=== PATIENT | male | born 1945 | race Caucasian/White ===

== ENCOUNTER 2016-05-18 13:28 | Emergency (ER) | payer MEDICARE, OTHER ==
[~2016-05-18 13:28] MED LIST: CITA40TA12 PO; CLON2TAB PO; ONDA4TAB10 PO; PRED50TA PO; TAMS0.4C97 PO
[2016-05-18] MEDS ORDERED: ALBUTEROL SULFATE 2.5 MG/3 ML NEBU. NEB ONE (14:30)
[2016-05-18] MEDS ORDERED: PREDNISONE 20 MG TABLET PO ONE (14:30)
[2016-05-18] MEDS ORDERED: IPRATRPIUM/ALBUTEROL 0.5/2.5MG 3 ML NEBU. NEB ONE (14:30)
[2016-05-18] MEDS ORDERED: PRED50TA PO (15:15)
[2016-05-18 15:25] VITALS: BP 115/83
--- NOTE | 2016-05-18 15:33 | RAD ---
Chest, 2 views, 05/18/2016: History: Productive cough, COPD Comparison is made to a study from 11/05/2014. The heart size and pulmonary vascularity are normal. No pulmonary infiltrates are seen. There is no evidence of pleural fluid. IMPRESSION: No acute cardiopulmonary abnormality is detected.
--- NOTE | 2016-05-18 15:36 | ED.ADGEN ---
Past History Past Medical History: Anxiety, Other Past Surgical History: Appendectomy Alcohol Use: Sober Drug Use: None Adult General HPI HPI Patient is a 70-year-old male presents emergency department complaining of increasing dyspnea. He was treated one week ago for a presumed pneumonia with azithromycin and albuterol. Patient states that he is finishes azithromycin but his breathing continues to be labored. He denies any fever or chills. He does have a history of COPD. Review of Systems Review of Systems Constitutional: Denies fever or chills [] Eyes: Denies change in visual acuity, redness, or eye pain [] HENT: Denies nasal congestion or sore throat [] Respiratory: Denies cough or shortness of breath [] Cardiovascular: No additional information not addressed in HPI [] GI: Denies abdominal pain, nausea, vomiting, bloody stools or diarrhea [] : Denies dysuria or hematuria [] Musculoskeletal: Denies back pain or joint pain [] Integument: Denies rash or skin lesions [] Neurologic: Denies headache, focal weakness or sensory changes [] Endocrine: Denies polyuria or polydipsia [] Current Medications Current Medications Current Medications Medications (Trade) Dose Ordered Sig/Linden Start Time Stop Time Status Last Admin Dose Admin Albuterol Sulfate (Ventolin) 2.5 mg 1X ONCE 05/18/16 14:30 05/18/16 14:31 DC 05/18/16 14:03 2.5 MG Albuterol/ Ipratropium (Duoneb) 3 ml 1X ONCE 05/18/16 14:30 05/18/16 14:31 DC 05/18/16 14:10 3 ML Prednisone (Prednisone) 60 mg 1X ONCE 05/18/16 14:30 05/18/16 14:31 DC 05/18/16 14:40 60 MG Allergies Allergies Allergies Coded Allergies Type Severity Reaction Last Updated Verified No Known Drug Allergies 03/12/15 No Physical Exam Physical Exam Constitutional: Well developed, well nourished, no acute distress, non-toxic appearance. [] HENT: Normocephalic, atraumatic, bilateral external ears normal, oropharynx moist, no oral exudates, nose normal. [] Eyes: PERRLA, EOMI, conjunctiva normal, no discharge. [] Neck: Normal range of motion, no tenderness, supple, no stridor. [] Cardiovascular:Heart rate regular rhythm, no murmur [] Lungs & Thorax: Wheezing bilaterally Abdomen: Bowel sounds normal, soft, no tenderness, no masses, no pulsatile masses. [] Skin: Warm, dry, no erythema, no rash. [] Extremities: No tenderness, no cyanosis, no clubbing, ROM intact, no edema. [] Neurologic: Alert and oriented X 3, normal motor function, normal sensory function, no focal deficits noted. [] Psychologic: Affect normal, judgement normal, mood normal. [] Current Patient Data Vital Signs Vital Signs Date Time Temp Pulse Resp B/P Pulse Ox O2 Delivery O2 Flow Rate FiO2 05/18/16 14:06 93 Room Air EKG EKG [] Radiology/Procedures Radiology/Procedures Chest, 2 views, 05/18/2016: History: Productive cough, COPD Comparison is made to a study from 11/05/2014. The heart size and pulmonary vascularity are normal. No pulmonary infiltrates are seen. There is no evidence of pleural fluid. IMPRESSION: No acute cardiopulmonary abnormality is detected. DICTATED AND SIGNED BY: KRISTIE RHODES MD DATE: 05/18/16 1529 CC: SHAUNA KING MD; CLIFF BATEMAN MD ~[] Course & Med Decision Making Course & Med Decision Making Pertinent Labs and Imaging studies reviewed. (See chart for details) After couple of breathing treatments and a dose of prednisone the patient reports she has had significant improvement. I will send him home on a prednisone burst. Patient will follow with his doctor as needed and will continue to use his albuterol. He will return emergency Department sooner if he develops any new or worsening symptoms. [] Final Impression Final Impression COPD exacerbation [] Problems: Dragon Disclaimer Dragon Disclaimer This electronic medical record was generated, in whole or in part, using a voice recognition dictation system. SHAUNA KING MD May 18, 2016 15:36
== END 2016-05-18 15:25 | disposition home or self-care (01) ==
LOC: ER 13:28
DX: J44.1 Chronic obstructive pulmonary disease with (acute) exacerbation (principal)
CPT/HCPCS: 71020; 94640; 99284; J7512; J7613; J7620; 31500; 43760

== ENCOUNTER 2018-05-21 18:10 | Emergency (ER) | payer MEDICARE, OTHER ==
[~2018-05-21] VITALS: Ht 180.3 cm; Wt 88.5 kg
--- NOTE | 2018-05-21 18:20 | ED.ADGEN ---
Past History Past Medical History: Arthritis, COPD, Other Past Medical History Severe Rheumatoid, Lt. leg clonus Past Surgical History: Appendectomy Alcohol Use: Sober Drug Use: Other Adult General Chief Complaint Chief Complaint .. " I tripped and fell on some boxes.. it was last night.. but it still hurts to breath.. and move... here on this Rt. side... and upper abdomen..." HPI HPI Patient is a 72 year old male who presents with above hx and complaints Rt. Flank pain after fall yesterday afternoon. Pt. hx given is that he tripped due to his unstable gait- which is a chronic condition. Pt. fell over some boxes and contused his Rt. flank. Pt. complaints of continue pain that is exacerbated by movement and deep breaths. Pt. noted on anterior to posterior and side to side compression of chest wall near T-10-12 level. Some tenderness on palpation of Rt upper abd. quadrant. No other injuries reported in fall. Pt. hs hx of severe rheumatoid arthritis and COPD. Pt. still smokes. Pt. follows with Dr. Donato Mensah. Review of Systems Review of Systems Constitutional: Denies fever or chills [] Eyes: Denies change in visual acuity, redness, or eye pain [] HENT: Denies nasal congestion or sore throat [] Respiratory:Complaints of Chest wall pain Rt. Cardiovascular: No additional information not addressed in HPI [] GI: Complaints of Rt. upperr quadrant abdominal pain,. Denies nausea, vomiting , bloody stools or diarrhea [] : Denies dysuria or hematuria [] Musculoskeletal: Generalized chronic joint pain from Rheumatoid Arthritis Integument: Denies rash or skin lesions [] Neurologic: Denies headache, focal weakness or sensory changes [] Endocrine: Denies polyuria or polydipsia [] All other systems were reviewed and found to be within normal limits, except as documented in this note. Family History Family History Noncontributory Current Medications Current Medications Current Medications Medications (Trade) Dose Ordered Sig/Linden Start Time Stop Time Status Last Admin Dose Admin Info (Do NOT chart on this entry -- for MONITORING) 1 each PRN DAILY PRN 05/21/18 20:00 05/23/18 19:59 Iohexol (Omnipaque 350 Mg/ml) 100 ml 1X ONCE 05/21/18 19:45 05/21/18 19:46 DC 05/21/18 20:03 100 ML Lactated Ringer's 1,000 ml @ 100 mls/hr Q10H 05/21/18 18:26 05/22/18 04:25 05/21/18 19:07 100 MLS/HR Morphine Sulfate (Morphine 4mg Syringe) 4 mg 1X ONCE 05/21/18 19:15 05/21/18 19:16 DC 05/21/18 19:39 4 MG Allergies Allergies Allergies Coded Allergies Type Severity Reaction Last Updated Verified No Known Drug Allergies 03/12/15 No Physical Exam Physical Exam Constitutional: Moderate acute distress, non-toxic appearance. [] HENT: Normocephalic, atraumatic, bilateral external ears normal, oropharynx moist, no oral exudates, nose normal. [] Eyes: PERRLA, EOMI, conjunctiva normal, no discharge. [] Neck: Normal range of motion, no tenderness, supple, no stridor. [] Cardiovascular:Heart rate regular rhythm, no murmur [] Lungs & Thorax: Bilateral breath sounds equal apexes with few wheezes on auscultation [] Chest wall tenderness as per HPI Abdomen: Bowel sounds normal, soft, Rt. upper quadrant and flank tenderness as per HPI, no masses, no pulsatile masses. [] Old surgery scar. Skin: Warm, dry, no erythema, no rash. Poor turgor. [] Back: No tenderness, no CVA tenderness. [] Extremities: Joint tenderness, no cyanosis, no clubbing, ROM intact, no edema. [ ] Paramjit rheumatoid changes hands and feet. Neurologic: Alert and oriented X 3, is reported at his base line for motor and sensory function, no focal deficits noted. []Clonus Lt. foot Psychologic: Affect anxious, judgement normal, mood normal. [] Current Patient Data Vital Signs Vital Signs Date Time Temp Pulse Resp B/P (MAP) Pulse Ox O2 Delivery O2 Flow Rate FiO2 05/21/18 21:03 48 16 120/68 (85) 98 Room Air 05/21/18 18:20 97.4 Lab Results Laboratory Tests Test 05/21/18 18:35 White Blood Count 8.8 x10^3/uL (4.0-11.0) Red Blood Count 4.90 x10^6/uL (4.30-5.70) Hemoglobin 16.1 g/dL (13.0-17.5) Hematocrit 47.7 % (39.0-53.0) Mean Corpuscular Volume 97 fL (79-100) Mean Corpuscular Hemoglobin 33 pg (25-35) Mean Corpuscular Hemoglobin Concent 34 g/dL (31-37) Red Cell Distribution Width 14.3 % (11.5-14.5) Platelet Count 340 x10^3/uL (140-400) Neutrophils (%) (Auto) 72 % (31-73) Lymphocytes (%) (Auto) 20 % (24-48) L Monocytes (%) (Auto) 6 % (0-9) Eosinophils (%) (Auto) 1 % (0-3) Basophils (%) (Auto) 1 % (0-3) Neutrophils # (Auto) 6.3 x10^3uL (1.8-7.7) Lymphocytes # (Auto) 1.8 x10^3/uL (1.0-4.8) Monocytes # (Auto) 0.5 x10^3/uL (0.0-1.1) Eosinophils # (Auto) 0.1 x10^3/uL (0.0-0.7) Basophils # (Auto) 0.1 x10^3/uL (0.0-0.2) Prothrombin Time 11.5 SEC (9.4-11.4) H Prothrombin Time INR 1.2 (0.9-1.1) H PTT 25 SEC (23-33) Sodium Level 141 mmol/L (136-145) Potassium Level 3.8 mmol/L (3.5-5.1) Chloride Level 104 mmol/L (98-107) Carbon Dioxide Level 30 mmol/L (21-32) Anion Gap 7 (6-14) Blood Urea Nitrogen 19 mg/dL (8-26) Creatinine 1.1 mg/dL (0.7-1.3) Estimated GFR (Cockcroft-Gault) 65.8 Glucose Level 135 mg/dL (70-99) H Calcium Level 9.0 mg/dL (8.5-10.1) Magnesium Level 2.0 mg/dL (1.8-2.4) Total Bilirubin 0.6 mg/dL (0.2-1.0) Direct Bilirubin 0.2 mg/dL (0.0-0.2) Aspartate Amino Transferase (AST) 23 U/L (15-37) Alanine Aminotransferase (ALT) 35 U/L (16-63) Alkaline Phosphatase 103 U/L (46-116) Troponin I Quantitative < 0.017 ng/mL (0-0.055) Total Protein 7.1 g/dL (6.4-8.2) Albumin 3.2 g/dL (3.4-5.0) L EKG EKG Interpretation EKG shows a sinus rhythm at 63 bpm. Does have some leftward axis. No findings acute STEMI of contralateral changes.[] Radiology/Procedures Radiology/Procedures My interpretation of chest x-ray PA and lateral shows chronic COPD changes. Flat in the diaphragm. Digital degenerative joint changes. No findings of large pneumothorax. Does have findings of a hiatal hernia.[] CT chest shows a nondisplaced fracture right fifth rib. Moderate central lobular emphysema,no findings of obvious hepatic injury. Course & Med Decision Making Course & Med Decision Making Pertinent Labs and Imaging studies reviewed. (See chart for details) Patient take Tylenol and ibuprofen for pain. For marked pain may take Vicoprofen up 4 times a day. Patient to not bind the ribs. Encourage to stop smoking. Follow up with primary. Return if any concerns. [] Final Impression Final Impression 1. Fall 2. Rt. Flank Contusion 3. Severe Rheumatoid arthritis[] 4. Rt. Nondisplaced lateral 5th rib 5. Constipation Dragon Disclaimer Dragon Disclaimer This electronic medical record was generated, in whole or in part, using a voice recognition dictation system. Discharge Summary Visit Information Final Diagnosis Problems Medical Problems: (1) Rib fracture Status: Acute Brief Hospital Course Allergies Allergies Coded Allergies Type Severity Reaction Last Updated Verified No Known Drug Allergies 03/12/15 No Vital Signs Vital Signs Date Time Temp Pulse Resp B/P (MAP) Pulse Ox O2 Delivery O2 Flow Rate FiO2 05/21/18 21:03 48 16 120/68 (85) 98 Room Air 05/21/18 18:20 97.4 Lab Results Laboratory Tests Test 05/21/18 18:35 White Blood Count 8.8 x10^3/uL (4.0-11.0) Red Blood Count 4.90 x10^6/uL (4.30-5.70) Hemoglobin 16.1 g/dL (13.0-17.5) Hematocrit 47.7 % (39.0-53.0) Mean Corpuscular Volume 97 fL (79-100) Mean Corpuscular Hemoglobin 33 pg (25-35) Mean Corpuscular Hemoglobin Concent 34 g/dL (31-37) Red Cell Distribution Width 14.3 % (11.5-14.5) Platelet Count 340 x10^3/uL (140-400) Neutrophils (%) (Auto) 72 % (31-73) Lymphocytes (%) (Auto) 20 % (24-48) Monocytes (%) (Auto) 6 % (0-9) Eosinophils (%) (Auto) 1 % (0-3) Basophils (%) (Auto) 1 % (0-3) Neutrophils # (Auto) 6.3 x10^3uL (1.8-7.7) Lymphocytes # (Auto) 1.8 x10^3/uL (1.0-4.8) Monocytes # (Auto) 0.5 x10^3/uL (0.0-1.1) Eosinophils # (Auto) 0.1 x10^3/uL (0.0-0.7) Basophils # (Auto) 0.1 x10^3/uL (0.0-0.2) Prothrombin Time 11.5 SEC (9.4-11.4) Prothromb Time International Ratio 1.2 (0.9-1.1) Activated Partial Thromboplast Time 25 SEC (23-33) Sodium Level 141 mmol/L (136-145) Potassium Level 3.8 mmol/L (3.5-5.1) Chloride Level 104 mmol/L (98-107) Carbon Dioxide Level 30 mmol/L (21-32) Anion Gap 7 (6-14) Blood Urea Nitrogen 19 mg/dL (8-26) Creatinine 1.1 mg/dL (0.7-1.3) Estimated GFR (Cockcroft-Gault) 65.8 Glucose Level 135 mg/dL (70-99) Calcium Level 9.0 mg/dL (8.5-10.1) Magnesium Level 2.0 mg/dL (1.8-2.4) Total Bilirubin 0.6 mg/dL (0.2-1.0) Direct Bilirubin 0.2 mg/dL (0.0-0.2) Aspartate Amino Transf (AST/SGOT) 23 U/L (15-37) Alanine Aminotransferase (ALT/SGPT) 35 U/L (16-63) Alkaline Phosphatase 103 U/L (46-116) Troponin I Quantitative < 0.017 ng/mL (0-0.055) Total Protein 7.1 g/dL (6.4-8.2) Albumin 3.2 g/dL (3.4-5.0) Brief Hospital Course Mr. Faria is a 72 old male who presented with Rt. 5th rib fx. Discharge Information Condition at Discharge: Improved, Stable Disposition/Orders: D/C to Home Dischare Medications Current Medications Lactated Ringer's 1,000 ml @ 100 mls/hr Q10H IV Last administered on at 19:07; Admin Dose 100 MLS/HR; Start 05/21/18 at 18:26; Stop 05/22/18 at 04: 25 Morphine Sulfate (Morphine 4mg Syringe) 4 mg 1X ONCE IV Last administered on at 19:39; Admin Dose 4 MG; Start 05/21/18 at 19:15; Stop 05/21/18 at 19:16 ; Status DC Iohexol (Omnipaque 350 Mg/ml) 100 ml 1X ONCE IV Last administered on at 20:03; Admin Dose 100 ML; Start 05/21/18 at 19:45; Stop 05/21/18 at 19:46; Status DC Info (Do NOT chart on this entry -- for MONITORING) 1 each PRN DAILY PRN MC SEE COMMENTS; Start 05/21/18 at 20:00; Stop 05/23/18 at 19:59 Active Scripts Active Hydrocodone-Ibuprofen 7.5-200 (Hydrocodone/Ibuprofen) 1 Each Tablet 1 Tab PO PRN Q6HRS PRN Prednisone 50 Mg Tablet 1 Tab PO DAILY Zofran Odt (Ondansetron) 4 Mg Tab.rapdis 4 Mg PO Q6HRS PRN Prednisone 50 Mg Tablet 1 Tab PO DAILY Reported Klonopin (Clonazepam) 2 Mg Tablet 1 Tab PO BID Celexa (Citalopram Hydrobromide) 40 Mg Tablet 40 Mg PO DAILY Flomax (Tamsulosin Hcl) 0.4 Mg Cap.er.24h 1 Cap PO DAILY Dragon Disclaimer This chart was dictated in whole or in part using Voice Recognition software in a busy, high-work load, and often noisy Emergency Department environment. It may contain unintended and wholly unrecognized errors or omissions. VAISHALI MAR MD May 21, 2018 18:20
[2018-05-21] MEDS ORDERED: IV RINGERS SOLUTION,LACTATED 1,000 ML IV SCH (18:26)
[2018-05-21 18:53] LABS: BASO # 0.1 x10^3/uL (0.0-0.2); BASO % 1 % (0-3); EOS # 0.1 x10^3/uL (0.0-0.7); EOS % 1 % (0-3); HEMATOCRIT 47.7 % (39.0-53.0); HEMOGLOBIN 16.1 g/dL (13.0-17.5); LYMPH # 1.8 x10^3/uL (1.0-4.8); LYMPH % 20 % (24-48); MEAN CORPUSCULAR HEMOGLOBIN 33 pg (25-35); MEAN CORPUSCULAR HGB CONC 34 g/dL (31-37); MEAN CORPUSCULAR VOLUME 97 fL (79-100); MONO # 0.5 x10^3/uL (0.0-1.1); MONO % 6 % (0-9); NEUT # 6.3 x10^3uL (1.8-7.7); NEUT % 72 % (31-73); PLATELET COUNT 340 x10^3/uL (140-400); RED CELL DISTRIBUTION WIDTH 14.3 % (11.5-14.5); WHITE BLOOD COUNT 8.8 x10^3/uL (4.0-11.0)
[2018-05-21 19:13] LABS: ALBUMIN 3.2 g/dL (3.4-5.0); CREATININE 1.1 mg/dL (0.7-1.3); DIRECT BILIRUBIN 0.2 mg/dL (0.0-0.2); GFR 65.8; POTASSIUM 3.8 mmol/L (3.5-5.1); TOTAL BILIRUBIN 0.6 mg/dL (0.2-1.0); TOTAL PROTEIN 7.1 g/dL (6.4-8.2)
[2018-05-21] MEDS ORDERED: MORPHINE SULFATE 4 MG/ML DISP.SYRIN. IV ONE (19:15)
[2018-05-21] MEDS ORDERED: IOHEXOL 350 MG/ML 100 ML VIAL. IV ONE (19:45)
[2018-05-21] MEDS ORDERED: CONTRAST GIVEN MC PRN (20:00)
--- NOTE | 2018-05-21 21:34 | RAD ---
PA and lateral chest. HISTORY: Right-sided chest pain, right rib and flank pain, fall PA and lateral views were taken of the chest. There is no pneumothorax or pleural effusion. Lungs are clear. Heart is normal in size. A displaced right rib fracture is not identified. There is no thoracic compression fracture. IMPRESSION: 1. No acute chest disease. Electronically signed by: Fabián Ortiz MD (05/21/2018 9:31 PM) [id number]
--- NOTE | 2018-05-21 22:04 | RAD ---
EXAM: CT ANGIOGRAPHY OF THE CHEST AND ABDOMEN WITH AND WITHOUT INTRAVENOUS CONTRAST. HISTORY: Chest and flank pain. TECHNIQUE: Computed tomographic angiography of the chest was performed before and after the intravenous administration of 100 mL Omnipaque 350. 3-D maximum intensity projections were also performed. COMPARISON: None. FINDINGS: Bone windows reveal no suspicious lesions. No pulmonary emboli are identified. There is no aortic dissection or aneurysm. There is no arch vessel stenosis. There are no pathologically enlarged mediastinal or axillary lymph nodes. There is no pleural or pericardial effusion. The heart is not enlarged. Lung windows reveal moderate centrilobular emphysema. An uncalcified nodule in the right upper lobe on image 66 measures 5 mm. There is atelectasis or mild interstitial change in the costophrenic angles. There is mild bronchial wall thickening. The liver, gallbladder, pancreas, spleen and kidneys are unremarkable. A small nodule superiorly in the right adrenal gland measures 1.2 cm. It measures 13 Hounsfield units in attenuation and is likely a benign adenoma. There are no pathologically enlarged lymph nodes. The bladder is moderately to severely distended. Stool throughout the colon is consistent with constipation. There is no small bowel obstruction. There is no abdominal aortic aneurysm. The visualized iliac systems demonstrate mild atherosclerotic calcification without stenosis or aneurysm. There are atherosclerotic calcifications at the origins of the celiac axis and superior mesenteric artery without stenosis. The inferior mesenteric artery is patent. Both renal arteries are single and patent without stenosis. IMPRESSION: 1. No aortic dissection or aneurysm. 2. Nondisplaced fracture of the right lateral fifth rib. 3. Moderate centrilobular emphysema. Mild atelectasis versus interstitial lung disease in the costophrenic angles. 4. A 5 mm nodule in the right upper lobe is most likely benign at this small size. Follow-up could be considered in one year in a high risk patient if long-term stability is not already known. 5. A 1.2 cm right adrenal nodule is most likely a benign adenoma in the absence of known malignancy. 6. Correlate for constipation. *One or more of the following individualized dose reduction techniques were utilized for this examination: 1. Automated exposure control. 2. Adjustment of the mA and/or kV according to patient size. 3. Use of iterative reconstruction technique. Electronically signed by: Mari Feng MD (05/21/2018 10:01 PM) [id number]
[2018-05-21] MEDS ORDERED: HYDR-1179 PO (22:15)
[2018-05-21 22:30] VITALS: BP 124/78
--- NOTE | 2018-05-30 12:42 | EKG ---
[address] [address] Test Date: 2018-05-21 Test Time: 18:41:16 Pat Name: ROGELIO SQUIRES Department: Room: Gender: M Leadlighter: : 1945 Requested By: VAISHALI MAR Order Number: [id number] Reading MD: Prashanth Venegas Measurements Intervals [place] Rate: 63 P: 56 [place]: 150 QRS: -28 QRSD: 92 T: 28 QT: 414 QTc: 427 Interpretive Statements SINUS RHYTHM LEFTWARD AXIS Electronically Signed On 05-30-2018 12:41:59 CDT by Prashanth Venegas
== END 2018-05-21 22:30 | disposition home or self-care (01) ==
LOC: ER 18:10
DX: S22.31XA Fracture of one rib, right side, initial encounter for closed fracture (principal); S30.1XXA Contusion of abdominal wall, initial encounter; K59.00 Constipation, unspecified; M06.80 Other specified rheumatoid arthritis, unspecified site; F17.200 Nicotine dependence, unspecified, uncomplicated; Z90.89 Acquired absence of other organs; W01.0XXA Fall on same level from slipping, tripping and stumbling without subsequent striking against object, initial encounter; Y93.89 Activity, other specified; Y92.89 Other specified places as the place of occurrence of the external cause; Y99.8 Other external cause status
CPT/HCPCS: 36415; 71046; 71275; 74175; 80048; 80076; 83735; 84443; 84484; 85025; 85610; 85730; 93005; 96374; 99285; J2270; J7120; Q9967; 96361

== ENCOUNTER → 2018-12-30 | Outpatient (CLI) | payer MEDICARE, OTHER ==
[~2018-12-30] MED LIST changes: +HYDR-1179 PO
--- NOTE | 2018-12-30 10:49 | RAD ---
CT of the chest without contrast 12/30/2018 INDICATION: Follow-up pulmonary nodule COMPARISON STUDY: CT of the chest May 21, 2018 TECHNIQUE: Multidetector CT imaging of the chest performed without contrast FINDINGS: No pneumothorax, pleural effusion, or new focal infiltrate is seen. Stable 4 mm nodule, right upper lobe. Heart size is normal. Is identified. Coronary calcification again noted. Scattered small mediastinal lymph nodes are similar. Centrilobular emphysema is similar. Limited visualization of the upper abdomen is unremarkable. Interval development of the T4 compression fracture without bony retropulsion. Finding is indeterminate the morphology suggests subacute or chronic etiology. Impression: 1. Stable 4 mm lung nodule, right upper lobe. CT imaging to ensure 2 years of stability recommended 2. Centrilobular emphysema 3. Interval development of T4 compression fracture, likely subacute or chronic. Correlate with focal back pain consider MRI imaging as clinically indicated CT DOSING PQRS STATEMENT: One or more of the following individualized dose reduction techniques were utilized for this examination: 1. Automated exposure control 2. Adjustment of the mA and/or kV according to patient size 3. Use of iterative reconstruction technique Electronically signed by: Fabiano Pelaez MD (12/30/2018 10:46 AM) [id number]
== END | disposition home or self-care (01) ==
LOC: CT 09:15
PROVIDERS: ATTEND Family Medicine
DX: J43.2 Centrilobular emphysema (principal); R91.1 Solitary pulmonary nodule; I25.10 Atherosclerotic heart disease of native coronary artery without angina pectoris; M48.54XA Collapsed vertebra, not elsewhere classified, thoracic region, initial encounter for fracture; F17.200 Nicotine dependence, unspecified, uncomplicated
CPT/HCPCS: 71250

== ENCOUNTER → 2019-11-17 | Outpatient (CLI) | payer MEDICARE, OTHER ==
--- NOTE | 2019-11-17 13:09 | RAD ---
Examination: CT chest without contrast HISTORY: History of right upper lobe lung nodule. COMPARISON: 12/30/2018 TECHNIQUE: Axial CT images of chest were performed without contrast. Coronal and sagittal reformats are performed. Exposure: One or more of the following individualized dose reduction techniques were utilized for this examination: 1. Automated exposure control 2. Adjustment of the mA and/or kV according to patient size 3. Use of iterative reconstruction technique FINDINGS: The heart size grossly appears unremarkable. Coronary artery calcifications identified. The ascending aorta is 3.8 cm in transverse dimension. No evidence for significant mediastinal lymphadenopathy Moderate bilateral lung emphysematous changes. A 4 mm nodule identified in the right upper lobe of the lung. There is a 6 mm nodular density in the left lower lobe of the lung. Minimal right lung base airspace opacities likely atelectasis, unchanged. The visualized noncontrasted liver, spleen, adrenals grossly appears unremarkable. Mild degenerative changes thoracic spine. Mild compression change of T4 vertebral body unchanged. IMPRESSION: 1. 4 mm nodule identified in the right upper lobe of the lung and a 6 mm nodule identified left lower lobe of the lung, unchanged. Electronically signed by: Garth Angeles MD (11/17/2019 1:06 PM) [id number]
== END ==
LOC: CT 12:17
PROVIDERS: ATTEND Family Medicine
DX: R91.1 Solitary pulmonary nodule (principal); J43.9 Emphysema, unspecified; I25.10 Atherosclerotic heart disease of native coronary artery without angina pectoris
CPT/HCPCS: 71250

== ENCOUNTER → 2020-07-30 | Outpatient (CLI) | payer MEDICARE, OTHER ==
--- NOTE | 2020-07-31 12:50 | RAD ---
EXAM: CT OF THE CHEST WITHOUT CONTRAST. HISTORY: Pulmonary nodules. TECHNIQUE: Computed tomography of the chest was performed without intravenous contrast. One or more o f the following individualized dose reduction techniques were utilized for this examination: 1. Automated exposure control. 2. Adjustment of the mA and/or kV according to patient size. 3. Use of iterative reconstruction technique. COMPARISON: 11/17/2019, 05/21/2018. FINDINGS: Images of the upper abdomen reveal mild to moderate left hydronephrosis, incompletely asses sed. Bone windows reveal no suspicious lesions. A moderate superior endplate compression deformity at T4 is chronic. There are no pathologically enlarged mediastinal or axillary lymph nodes. There is no pleural or kalen cardial effusion. The heart is not enlarged. There are atherosclerotic calcifications of the coronary arteries. A 5 mm nodule in the left lower lobe on image 220 is stable. A 4 mm nodule in the right upper lobe on image 99 is also stable. A 4 mm nodule adjacent to the posterior pleura in the left lower lobe on im age 89 was not seen previously but is likely atelectasis. There are no suspicious nodules. There is mild to moderate centrilobular emphysema. Subpleural interstitial line thickening is most no table in the right base is consistent with interstitial lung disease. This has increased slightly sin ce 2019. IMPRESSION: 1. A 4 mm nodule in the left lower lobe was not seen previously but is likely atelectasis. Other nodu les are stable. Screening CT could be performed in one year if there is persistent concern. 2. Interstitial lung disease superimposed on mild to moderate centrilobular emphysema appears slightl y progressed since 2019. 3. Mild to moderate left hydronephrosis is incompletely assessed. Correlate with other data. CT of th e abdomen/pelvis could further evaluate if the diagnosis is not already known. Electronically signed by: Mari Feng MD (07/31/2020 12:48 PM) [id number]
== END ==
LOC: CT 14:10
PROVIDERS: ATTEND Family Medicine
DX: R91.8 Other nonspecific abnormal finding of lung field (principal); J43.2 Centrilobular emphysema; J98.4 Other disorders of lung; N13.30 Unspecified hydronephrosis
CPT/HCPCS: 71250

== ENCOUNTER 2020-08-26 23:18 | Emergency (ER) | payer MEDICARE, OTHER ==
[~2020-08-26] VITALS: Ht 180.3 cm; Wt 88.0 kg
[~2020-08-26 23:18] MED LIST changes: -CIPR500S2 PO
--- NOTE | 2020-08-27 00:01 | PHYS DOC ---
Past History Past Medical History: Arthritis, COPD, Prostatitis, Other Past Surgical History: Appendectomy Alcohol Use: Sober Drug Use: Benzodiazepine General Adult HPI: HPI: ".. I got bad abdomen pain.. .. for a couple days now.. it is worse now.. especially the last 4 hrs.. at lst I thought it was the beans and hot dogs I had two days ago .. I got MS, ... Rheumatoid arthritis... And enlarged prostate. I have been on prednisone recently for arthritis. I am no longer taking the methotrexate.... Patient is a 75 year old malee who presents with above hx and complaints of abdomen pain. Patient denies any severe ill contacts. No recent travel. No history of bad food intake, but does does state his symptoms seem to start after eating beans with wieners 2 days ago. Patient has past medical history of arthritis, COPD, leg: Clonus, advanced rheumatoid arthritis, MS - primary progressive, large prostate, urinary retention and enteritis.. Patient still smokes. Patient only follows with Dr. Bateman for care. No specific ill contacts. No recent travel. Has been compliant with meds. Patient has had previous abdomen surgeries of appendectomy. Review of Systems: Review of Systems: Constitutional: Denies fever or chills Eyes: Denies change in visual acuity HENT: Denies nasal congestion or sore throat Respiratory: Denies cough or shortness of breath Cardiovascular: Denies chest pain or edema GI: Complains of generalized abdominal pain, nausea,. Denies vomiting, bloody stools or diarrhea : Complains of dysuria Musculoskeletal: Denies back pain or joint pain Integument: Denies rash Neurologic: Denies headache, focal weakness or sensory changes Endocrine: Denies polyuria or polydipsia Lymphatic: Denies swollen glands Psychiatric: Denies depression or anxiety Family History: Family History: Noncontributory to presentation Current Medications: Current Meds: See nursing for home meds Allergies: Allergies: Allergies Coded Allergies Type Severity Reaction Last Updated Verified No Known Drug Allergies 03/12/15 No Physical Exam: PE: Constitutional: Moderate acute distress, non-toxic appearance. [] HENT: Normocephalic, atraumatic, bilateral external ears normal, oropharynx moist, no oral exudates, nose normal. [] Eyes: PERRLA, EOMI, conjunctiva normal, no discharge. [] Neck: Decreased range of motion, no tenderness, supple, no stridor. [] Cardiovascular:Heart rate regular rhythm, no murmur, PMI to left Lungs & Thorax: Bilateral breath sounds to apex with scattered wheezes on auscultation [] Abdomen: Bowel sounds decreased, soft, and generalized tenderness, appears to have a very enlarged bladder,, no pulsatile masses. [] Skin: Warm, dry, no erythema, no rash. Poor turgor Back: No tenderness, no CVA tenderness. [] Extremities: Generalized joint tenderness, no cyanosis, no clubbing, ROM decreased no edema. Marker rheumatoid arthritic changes such as hand ulnar deviation Neurologic: Alert and oriented X 3, moves all extremities on request, has distal sensory in hands,, no new focal deficits noted. [] DTRs +2 patella and brachial. Psychologic: Affect anxious, judgement normal, mood normal. [] EKG: EKG: My interpretation EKG shows a sinus rhythm at 80 bpm. There is left axis deviation. And a fascicular block. No findings of acute STEMI of contralateral changes. [] Radiology/Procedures: Radiology/Procedures: [[place] [address] IMAGING REPORT Signed PATIENT: ROGELIO SQUIRES ACCOUNT: [id number] : 1945 LOCATION: ER AGE: 75 SEX: M EXAM STATUS: REG ER ORD. PHYSICIAN: VAISHALI MAR MD REASON: pain, OMNI 300, 75ml & OMNI 240, 30ml PROCEDURE: CT ABD PELV W/ORAL&IV CONTRAST CT ABDOMEN+PELVIS W History: pain Comparison: 08/26/2020 Technique: After administration of intravenous contrast, helical CT of the abdomen and pelvis was performed from the lung bases through the ischial tuberosities. Coronal and sagittal reconstructions were obtained. 75 mL of Omnipaque 300 were used. One or more of the following dose reduction techniques were utilized: Automated exposure control (AEC), Adjustment of mA and/or kV according to patient size, Use of iterative reconstruction technique such as ASiR, CT scan done according to ALARA and image gently/image wisely Abdomen Findings: The visualized lung bases are clear. The liver, gallbladder, pancreas, spleen, and bilateral adrenal glands are normal. Symmetric renal enhancement. There is no focal renal mass. There is no hydronephrosis. Fluid and debris in the stomach. Conspicuous fluid-filled but nondilated loops of small bowel. Fluid in the colon. There is no evidence of bowel obstruction. Appendix is not seen. There is no mesenteric or retroperitoneal adenopathy. The abdominal aorta is normal in caliber. Pelvis Findings: Urinary bladder is decompressed by Puentes catheter. Mild pelvic free fluid. There is no pelvic or inguinal adenopathy. There is no acute bony abnormality. Degenerative changes of the spine. IMPRESSION: 1. Multiple conspicuous fluid-filled but nondilated loops of small bowel, nonspecific but can be seen with enteritis. 2. Fluid throughout the colon may represent diarrhea. 3. Mild pelvic free fluid. Electronically signed by: Darcy Pressley MD (08/27/2020 5:47 AM) [facility] DICTATED AND SIGNED BY: DARCY PRESSLEY MD DATE: 08/27/20532 CC: VAISHALI MAR MD; CLIFF BATEMAN MD ~[facility] [address] [place] [address] IMAGING REPORT Signed PATIENT: ROGELIO SQUIRES ACCOUNT: [id number] : 1945 LOCATION: ER AGE: 75 SEX: M EXAM STATUS: REG ER ORD. PHYSICIAN: VAISHALI MAR MD REASON: pain PROCEDURE: ACUTE ABDOMEN SERIES XR ABDOMEN COMP ACUTE INDICATION: Abdominal pain. COMPARISON STUDY: CT abdomen PEL 08/26/2020. FINDINGS: Lungs: Normal lung volume. No pulmonary mass or consolidation. The tracheobronchial tree and hilar structures are normal. Pleura: No pleural effusion or pneumothorax. Heart and Mediastinum: The cardiomediastinal silhouette is normal. The great vessels of the thorax are normal. Abdomen: Nonobstructive bowel gas pattern. No free air. IMPRESSION: 1. Nonobstructive bowel gas pattern. No free air. 2. No focal airspace disease. Electronically signed by: Darcy Pressley MD (08/27/2020 12:56 AM) [facility] DICTATED AND SIGNED BY: DARCY PRESSLEY MD DATE: 08/27/20 0055 CC: VAISHALI MAR MD; CLIFF BATEMAN MD ~[facility]0 0 Heart Score: C/O Chest Pain: N/A HEART Score for Chest Pain: HEART Score for Chest Pain Response (Comments) Value History Slighlty/Non-Suspicious 0 ECG Nonspecific Repolarizatio 1 Age > 65 2 Risk Factors 1 or 2 Risk Factors 1 Troponin < Normal Limit 0 Total 4 Risk Factors: Risk Factors: DM, Current or recent (<one month) smoker, HTN, HLP, family history of CAD, obesity. Risk Scores: Score 0 - 3: 2.5% MACE over next 6 weeks - Discharge Home Score 4 - 6: 20.3% MACE over next 6 weeks - Admit for Clinical Observation Score 7 - 10: 72.7% MACE over next 6 weeks - Early Invasive Strategies Course & Med Decision Making: Course & Med Decision Making Pertinent Labs and Imaging studies reviewed. (See chart for details) Puentes cath placed with return of more than 2000 cc of urine-after this procedure patient reported marked relief of abdomen pain. Patient take Cipro 500 mg twice a day. Tylenol and ibuprofen as needed for pain. Push fluids. Follow-up with urology. Return if any concerns. \\ Impression: 1. Abdomen Pain 2. Urinary Retention 3. MS 4. Rheumatoid arthritis 5. Enlarged prostate 6. Leukocytosis 15.7 with 71 segs 7. Gastroenteritis [] Dragon Disclaimer: Dragon Disclaimer: This electronic medical record was generated, in whole or in part, using a voice recognition dictation system. Departure Departure: Referrals: CLIFF BATEMAN MD (PCP) Scripts Tamsulosin Hcl (FLOMAX) 0.4 Mg Cap.er.24h 0.4 MG PO DAILY for enlarge prostate for 30 Days, #30 CAP.SR Prov: VAISHALI MAR MD 08/27/20 Ciprofloxacin (CIPRO) 500 Mg/5 Ml Dinora.mc.rec 500 MG PO BID for uti for 7 Days, MISC Prov: VAISHALI MAR MD 08/27/20 Dragon Disclaimer This chart was dictated in whole or in part using Voice Recognition software in a busy, high-work load, and often noisy Emergency Department environment. It may contain unintended and wholly unrecognized errors or omissions. VAISHALI MAR MD Aug 27, 2020 00:01
[2020-08-27] MEDS ORDERED: IV RINGERS SOLUTION,LACTATED 1,000 ML IV SCH (00:30)
[2020-08-27] MEDS ORDERED: FAMOTIDINE 20 MG/2 ML VIAL IVP ONE (00:30)
[2020-08-27] MEDS ORDERED: KETOROLAC 30 MG/ML VIAL. IVP ONE (00:30)
[2020-08-27] MEDS ORDERED: ONDANSETRON PF 4 MG/2 ML VIAL. IVP ONE (00:30)
--- NOTE | 2020-08-27 00:59 | RAD ---
XR ABDOMEN COMP ACUTE INDICATION: Abdominal pain. COMPARISON STUDY: CT abdomen PEL 08/26/2020. FINDINGS: Lungs: Normal lung volume. No pulmonary mass or consolidation. The tracheobronchial tree and hilar st ructures are normal. Pleura: No pleural effusion or pneumothorax. Heart and Mediastinum: The cardiomediastinal silhouette is normal. The great vessels of the thorax ar e normal. Abdomen: Nonobstructive bowel gas pattern. No free air. IMPRESSION: 1. Nonobstructive bowel gas pattern. No free air. 2. No focal airspace disease. Electronically signed by: Sourav Pressley MD (08/27/2020 12:56 AM) [facility]
[2020-08-27 01:11] LABS: BASO # 0.1 x10^3/uL (0.0-0.2); BASO % 0 % (0-3); EOS # 0.1 x10^3/uL (0.0-0.7); EOS % 1 % (0-3); HEMATOCRIT 44.6 % (39.0-53.0); HEMOGLOBIN 14.9 g/dL (13.0-17.5); LYMPH # 1.9 x10^3/uL (1.0-4.8); LYMPH % 12 % (24-48); MEAN CORPUSCULAR HEMOGLOBIN 32 pg (25-35); MEAN CORPUSCULAR HGB CONC 34 g/dL (31-37); MEAN CORPUSCULAR VOLUME 96 fL (79-100); MONO # 1.2 x10^3/uL (0.0-1.1); MONO % 8 % (0-9); NEUT # 12.4 x10^3uL (1.8-7.7); NEUT % 79 % (31-73); PLATELET COUNT 275 x10^3/uL (140-400); RED BLOOD COUNT 4.63 x10^6/uL (4.30-5.70); RED CELL DISTRIBUTION WIDTH 15.4 % (11.5-14.5); WHITE BLOOD COUNT 15.7 x10^3/uL (4.0-11.0)
[2020-08-27 01:21] LABS: CALCIUM 8.9 mg/dL (8.5-10.1); CREATININE 0.9 mg/dL (0.7-1.3); GFR 82.3; POTASSIUM 3.6 mmol/L (3.5-5.1)
[2020-08-27 01:28] LABS: ALBUMIN 3.6 g/dL (3.4-5.0); DIRECT BILIRUBIN 0.2 mg/dL (0.0-0.2); TOTAL BILIRUBIN 0.7 mg/dL (0.2-1.0); TOTAL PROTEIN 6.5 g/dL (6.4-8.2)
[2020-08-27 01:36] LABS: % BANDS 4 % (0-9); % BASOS 1 % (0-3); % EOS 1 % (0-5); % LYMPHS 16 % (24-48); % MONOS 7 % (0-10); % SEGS 71 % (35-66); PLT ESTIMATE ADEQUATE (ADEQUATE)
[2020-08-27] MEDS ORDERED: MORPHINE SULFATE 10 MG/ML SYRINGE. SQ ONE (03:00)
[2020-08-27] MEDS ORDERED: cefTRIAXone SODIUM 1 GM VIAL ONE (03:20)
[2020-08-27] MEDS ORDERED: IV NORMAL SALINE 50ML 50 ML ONE (03:20)
[2020-08-27] MEDS ORDERED: CONTRAST GIVEN. MC PRN (04:15)
[2020-08-27] MEDS ORDERED: IOHEXOL 300 MG/ML 75 ML VIAL. IV ONE (04:30)
[2020-08-27] MEDS ORDERED: IOHEXOL 240 MG/ML 50ML VIAL. PO ONE (04:30)
[2020-08-27 04:52] LABS: BACTERIA,URINE 0 /HPF (0-FEW); BILIRUBIN,URINE NEG (NEG); CLARITY,URINE CLEAR; COLOR,URINE YELLOW; GLUCOSE,URINE NEG (NEG); NITRITE,URINE NEG (NEG); RBC,URINE OCC /HPF (0-2); UROBILINOGEN,URINE 0.2 mg/dL (0.2 mg/dL); WBC,URINE OCC /HPF (0-4)
--- NOTE | 2020-08-27 05:50 | RAD ---
CT ABDOMEN+PELVIS W History: pain Comparison: 08/26/2020 Technique: After administration of intravenous contrast, helical CT of the abdomen and pelvis was per formed from the lung bases through the ischial tuberosities. Coronal and sagittal reconstructions wer e obtained. 75 mL of Omnipaque 300 were used. One or more of the following dose reduction techniques were utilized: Automated exposure control (AEC), Adjustment of mA and/or kV according to patient size , Use of iterative reconstruction technique such as ASiR, CT scan done according to ALARA and image g ently/image wisely Abdomen Findings: The visualized lung bases are clear. The liver, gallbladder, pancreas, spleen, and bilateral adrenal glands are normal. Symmetric renal enhancement. There is no focal renal mass. There is no hydronephrosis. Fluid and debris in the stomach. Conspicuous fluid-filled but nondilated loops of small bowel. Fluid in the colon. There is no evidence of bowel obstruction. Appendix is not seen. There is no mesenteric or retroperitoneal adenopathy. The abdominal aorta is normal in caliber. Pelvis Findings: Urinary bladder is decompressed by Puentes catheter. Mild pelvic free fluid. There is no pelvic or ingu inal adenopathy. There is no acute bony abnormality. Degenerative changes of the spine. IMPRESSION: 1. Multiple conspicuous fluid-filled but nondilated loops of small bowel, nonspecific but can be seen with enteritis. 2. Fluid throughout the colon may represent diarrhea. 3. Mild pelvic free fluid. Electronically signed by: Sourav Pressley MD (08/27/2020 5:47 AM) [facility]
[2020-08-27] MEDS ORDERED: CIPR500S2 PO (06:21)
[2020-08-27] MEDS ORDERED: TAMS0.4C97 PO (06:21)
[2020-08-27 07:00] VITALS: BP 122/68
--- NOTE | 2020-08-27 19:23 | EKG ---
[address] [address] Test Date: 2020-08-27 Test Time: 00:18:42 Pat Name: ROGELIO SQUIRES Department: Room: Gender: M [employer] Machine Operator: YIMI : 1945 Requested By: VAISHALI MAR Order Number: [id number] Reading MD: Measurements Intervals [place] Rate: 80 P: 86 ID: [id number] QRS: -51 QRSD: 88 T: 52 QT: 368 QTc: 428 Interpretive Statements SINUS RHYTHM ABNORMAL LEFT AXIS DEVIATION LEFT ANTERIOR FASCICULAR BLOCK ABNORMAL ECG RI6.02 No previous ECG available for comparison
== END 2020-08-27 07:00 | disposition home or self-care (01) ==
LOC: ER 23:18
DX: K52.9 Noninfective gastroenteritis and colitis, unspecified (principal); D72.829 Elevated white blood cell count, unspecified; N40.0 Benign prostatic hyperplasia without lower urinary tract symptoms; M06.9 Rheumatoid arthritis, unspecified; G35 Multiple sclerosis; R33.9 Retention of urine, unspecified; J44.9 Chronic obstructive pulmonary disease, unspecified; Z90.89 Acquired absence of other organs
CPT/HCPCS: 36415; 51702; 74022; 74177; 80048; 80076; 81001; 82150; 82550; 83690; 84484; 85007; 85025; 93005; 96361; 96365; 96366; 96372; 96375; 99285; J0696; J1885; J2270; J2405; J3490; J7120; Q9966; Q9967

== ENCOUNTER → 2020-08-26 | Outpatient (CLI) | payer MEDICARE, OTHER ==
[~2020-08-26] MED LIST changes: +CIPR500S2 PO
--- NOTE | 2020-08-26 08:49 | RAD ---
EXAMINATION: CT abdomen and pelvis with IV contrast. INDICATION:75 years, Male, evaluate for kidney stone. TECHNIQUE: Axial CT images of the abdomen and pelvis were obtained. Coronal and sagittal reformatted performed. COMPARISON: CT chest dated 05/21/2018 Exposure: One or more of the following individualized dose reduction techniques were utilized for thi s examination: 1. Automated exposure control 2. Adjustment of the mA and/or kV according to patient size 3. Use of iterative reconstruction technique. FINDINGS: LOWER CHEST: Right basilar subsegmental atelectasis. There is a 5 mm pulmonary nodule in the left lung base, uncha nged since May 2018. ABDOMEN/PELVIS: Within the limitation of noncontrast exam, Liver, gallbladder, biliary ducts, spleen and pancreas are unremarkable. No adrenal nodule. No hydronephrosis or nephrolithiasis in either kidney. No bowel obstruction or wall thickening. Appen michel is not seen with certainty. Mild aortoiliac atherosclerotic calcifications without dilatation. No pneumoperitoneum or ascites. No lymphadenopathy in the abdomen or pelvis by size criteria. Overdistended urinary bladder with irregular morphology and mild wall thickening, essentially similar to prior exam. Coarse calcifications in the prostate. MUSCULOSKELETAL: No acute osseous process or suspicious lesion. Small fat-containing bilateral inguinal hernia. IMPRESSION: 1. No obstructive uropathy or urolithiasis. 2. Overdistended urinary bladder with irregular morphology, findings can be seen in neurogenic bladde r or chronic bladder outlet obstruction. Clinical correlation is advised. Electronically signed by: Clau Lockhart MD (08/26/2020 8:47 AM) [id number]
== END ==
LOC: CT 08:02
PROVIDERS: ATTEND Family Medicine
DX: N13.30 Unspecified hydronephrosis (principal); K40.20 Bilateral inguinal hernia, without obstruction or gangrene, not specified as recurrent; I70.8 Atherosclerosis of other arteries; J98.11 Atelectasis; R91.1 Solitary pulmonary nodule; I70.0 Atherosclerosis of aorta
CPT/HCPCS: 74176

== ENCOUNTER 2020-09-19 17:00 | Emergency (ER) | payer MEDICARE, OTHER ==
[~2020-09-19] VITALS: Ht 180.3 cm; Wt 88.0 kg
[~2020-09-19 17:00] MED LIST changes: +CIPR500S2 PO
[2020-09-19 18:28] VITALS: BP 115/76
[2020-09-19 18:41] LABS: CLARITY,URINE CLOUDY; COLOR,URINE AMBER
[2020-09-19 18:42] LABS: BACTERIA,URINE FEW /HPF (0-FEW); BILIRUBIN,URINE NEG (NEG); GLUCOSE,URINE NEG (NEG); NITRITE,URINE NEG (NEG); RBC,URINE 20-40 /HPF (0-2); SQUAMOUS EPITHELIAL CELL,UR OCC /LPF; UROBILINOGEN,URINE 0.2 mg/dL (0.2 mg/dL)
[2020-09-19 18:43] LABS: AMORPHOUS SEDIMENT,UR PRESENT /HPF; SPERM,URINE PRESENT /HPF; YEAST,URINE PRESENT /HPF
--- NOTE | 2020-09-19 19:20 | PHYS DOC ---
Past History Past Medical History: Arthritis, COPD, Prostatitis, Other Additional Past Medical Histor: MS (DONTE RODRIGUEZ APRN) Past Surgical History: Appendectomy (DONTE RODRIGUEZ APRN) Alcohol Use: None Drug Use: Benzodiazepine (DONTE RODRIGUEZ APRN) General Adult EDM: Chief Complaint: URINARY RETENTION HPI: HPI: Patient is a [75-year-old male who presents with urinary retention. Patient had his catheter removed at the urologist office yesterday. Patient was unable to pee and contacted urology. Urologist told him if he did not end up pain by the end of today that he needed to come to the ER and have another catheter placed. (DONTE RODRIGUEZ APRN) Review of Systems: Review of Systems: Constitutional: Denies fever or chills Eyes: Denies change in visual acuity HENT: Denies nasal congestion or sore throat Respiratory: Denies cough or shortness of breath Cardiovascular: Denies chest pain or edema GI: Denies abdominal pain, nausea, vomiting, bloody stools or diarrhea : Reports unable to urinate Musculoskeletal: Denies back pain or joint pain Integument: Denies rash Neurologic: Denies headache, focal weakness or sensory changes Endocrine: Denies polyuria or polydipsia Lymphatic: Denies swollen glands Psychiatric: Denies depression or anxiety (DONTE RODRIGUEZ APRN) Allergies: Allergies: Allergies Coded Allergies Type Severity Reaction Last Updated Verified No Known Drug Allergies 03/12/15 No (DONTE RODRIGUEZ APRN) Physical Exam: PE: Constitutional: Well developed, well nourished, no acute distress, non-toxic appearance. [] HENT: Normocephalic, atraumatic, bilateral external ears normal, oropharynx moist, no oral exudates, nose normal. [] Eyes: PERRLA, EOMI, conjunctiva normal, no discharge. [] Neck: Normal range of motion, no tenderness, supple, no stridor. [] Cardiovascular:Heart rate regular rhythm, no murmur [] Lungs & Thorax: Bilateral breath sounds clear to auscultation [] Abdomen: Bowel sounds normal, soft, no tenderness, no masses, no pulsatile masses. [] Skin: Warm, dry, no erythema, no rash. [] Back: No tenderness, no CVA tenderness. [] Extremities: No tenderness, no cyanosis, no clubbing, ROM intact, no edema. [] Neurologic: Alert and oriented X 3, normal motor function, normal sensory function, no focal deficits noted. [] Psychologic: Affect normal, judgement normal, mood normal. [] (DONTE RODRIGUEZ APRN) Current Patient Data: Labs: Laboratory Tests Test 09/19/20 17:56 Urine Collection Type U cath Urine Color Jazzmine Urine Clarity Cloudy Urine pH 6.0 Urine Specific [place] 1.020 Urine Protein Trace (NEG-TRACE) Urine Glucose (UA) Neg mg/dL (NEG) Urine Ketones (Stick) Neg mg/dL (NEG) Urine Blood Mod (NEG) Urine Nitrite Neg (NEG) Urine Bilirubin Neg (NEG) Urine Urobilinogen Dipstick 0.2 mg/dL (0.2 mg/dL) Urine Leukocyte Esterase Small (NEG) Urine RBC 20-40 /HPF (0-2) Urine WBC 1-4 /HPF (0-4) Urine Squamous Epithelial Cells Occ /LPF Urine Amorphous Sediment Present /HPF Urine Bacteria Few /HPF (0-FEW) Urine Mucus Slight /LPF Urine Yeast Present /HPF Urine Sperm Present /HPF Vital Signs: Vital Signs Date Time Temp Pulse Resp B/P (MAP) Pulse Ox O2 Delivery O2 Flow Rate FiO2 09/19/20 18:28 69 16 115/76 (89) 97 Room Air 09/19/20 17:19 98.5 (DONTE RODRIGUEZ APRN) EKG: EKG: [] (DONTE RODRIGUEZ APRN) Radiology/Procedures: Radiology/Procedures: [] (DONTE RODRIGUEZ APRN) Heart Score: C/O Chest Pain: No Risk Factors: Risk Factors: DM, Current or recent (<one month) smoker, HTN, HLP, family history of CAD, obesity. Risk Scores: Score 0 - 3: 2.5% MACE over next 6 weeks - Discharge Home Score 4 - 6: 20.3% MACE over next 6 weeks - Admit for Clinical Observation Score 7 - 10: 72.7% MACE over next 6 weeks - Early Invasive Strategies (DONTE RODRIGUEZ APRN) Course & Med Decision Making: Course & Med Decision Making Pertinent Labs and Imaging studies reviewed. (See chart for details) [] 75-year-old male presents with urinary retention. Patient was at the urologist yesterday and had his urinary catheter removed. Patient states he had trouble urinating today. Patient contacted urology and was told to return to the ER to have a catheter placed if he was unable to pee by the end of the day. Patient was very uncomfortable on arrival. Catheter was placed. 2200 urinary output. Patient reports he feels much more comfortable. Patient given a leg bag and catheter left in place. Patient will be following up with urology in the morning per his urologist instruction. Patient is hemodynamically stable upon discharge. Patient is appreciative and okay with discharge plan . (DONTE RODRIGUEZ APRN) Dragon Disclaimer: Dragon Disclaimer: This electronic medical record was generated, in whole or in part, using a voice recognition dictation system. (DONTE RODRIGUEZ APRN) Departure Departure: Impression: Primary Impression: Urinary retention Disposition: HOME / SELF CARE / HOMELESS Condition: STABLE Referrals: CLIFF BATEMAN MD (PCP) Patient Instructions: Urinary Retention, Acute, Male, [id number] Additional Instructions: You were seen in the emergency room for urinary retention. Catheter was placed and you are given a leg bag. Make sure to keep your appointment for your urologist in the morning. Return to the emergency room if you have worsening symptoms or concerns. EMERGENCY DEPARTMENT GENERAL DISCHARGE INSTRUCTIONS Thank you for coming to [facility] (ED) today and trusting us with you care. We trust that you had a positivie experience in our Emergency Department. If you wish to speak to the department management, you may call the director at [phone]. YOUR FOLLOW UP INSTRUCTIONS ARE FOLLOWS: 1. Do you have a private Doctor? If you do not have a private doctor, please ask for a resource list of physicians or clinics that may be able to assist you with follow up care. 2. The Emergency Physician has interpreted your x-rays. The X-Ray specialist will also review them. If there is a change in the findings, you will be notified in 48 hours when at all possible. 3. A lab test or culture has been done, your results will be reviewed and you will be notified if you need a change in treatment. ADDITIONAL INSTRUCTIONS AND INFORMATION: 1. Your care today has been supervised by a physician who is specially trained in emergency care. Many problems require more than one evaluation for a complete diagnosis and treatment. We recommend that you schedule your follow up appointment as recommended to ensure complete treatment of you illness or injury. If you are unable to obtain follow up care and continue to have a problem, or if your condition worsens, we recommend that you return to the ED. 2. We are not able to safely determine your condition over the phone nor are we able to give sound medical advice over the phone. For these safety reasons, if you call for medical advice we will ask you to come to the ED for further evaluation. 3. If you have any questions regarding these discharge instructions please call the ED at [phone]. SAFETY INFORMATION: In the interest of safety, wellness, and injury prevention; we encourage you to wear your sealbelt, if you smoke; quite smoking, and we encourage family to use a protective helmet for bicycling and other sporting events that present an increased risk for head injury. IF YOUR SYMPTOMS WORSEN OR NEW SYMPTOMS DEVELOP, OR YOU HAVE CONCERNS ABOUT YOUR CONDITION; OR IF YOUR CONDITION WORSENS WHILE YOU ARE WAITING FOR YOUR FOLLOW UP APPOINTMENT; EITHER CONTACT YOUR PRIMARY CARE DOCTOR, THE PHYSICIAN WHOSE NAME AND NUMBER YOU WERE GIVEN, OR RETURN TO THE ED IMMEDIATELY. Attending Signature Attending Signature I have participated in the care of this patient and I have reviewed and agree with all pertinent clinical information above including history, exam, and recommendations. (VAISHALI MAR MD) DONTE RODRIGUEZ APRN Sep 19, 2020 19:20 VAISHALI MAR MD Sep 24, 2020 13:39
== END 2020-09-19 19:36 | disposition home or self-care (01) ==
LOC: ER 17:03
DX: R33.9 Retention of urine, unspecified (principal); M19.90 Unspecified osteoarthritis, unspecified site; J44.9 Chronic obstructive pulmonary disease, unspecified
CPT/HCPCS: 51702; 81001; 87077; 87086; 99284

== ENCOUNTER 2020-10-16 22:19 | Emergency (ER) | payer MEDICARE, OTHER ==
[~2020-10-16] VITALS: Ht 180.3 cm; Wt 75.0 kg
--- NOTE | 2020-10-16 23:14 | PHYS DOC ---
Past History Past Medical History: Arthritis, COPD, Prostatitis, Other Additional Past Medical Histor: MS Past Surgical History: Appendectomy Alcohol Use: None Drug Use: Benzodiazepine Adult General Chief Complaint Chief Complaint: URINE CATHETER PROBLEM HPI HPI Patient is a 75-year-old male with a past medical history significant for BPH, scheduled to have prostate surgery in a couple weeks who has an indwelling catheter that presents emergency department with a chief complaint of urinary retention. States that he had his catheter replaced this morning but since then feels like he has to urinate but has had very little out. States he thinks the catheter is clogged in someway. Denies any headaches, chest pain, shortness of breath, abdominal pain, nausea, vomiting, diarrhea, blood in the stool or urine. Denies any recent traumas, fevers, travels or known ill contacts. Review of Systems Review of Systems Review of systems otherwise unremarkable except noted in HPI Allergies Allergies Allergies Coded Allergies Type Severity Reaction Last Updated Verified No Known Drug Allergies 03/12/15 No Physical Exam Physical Exam Constitutional: Well developed, well nourished, no acute distress, non-toxic appearance. [] HENT: Normocephalic, atraumatic, Eyes: conjunctiva normal, no discharge. [] Neck: Normal range of motion, no tenderness, supple, no stridor. [] Cardiovascular:Heart rate regular rhythm, no murmur [] Lungs & Thorax: Bilateral breath sounds clear to auscultation [] Abdomen: soft, no tenderness, no masses, no pulsatile masses. : Normal circumcised penis with no obvious lesions, deformities or injuries [] Skin: Warm, dry, no erythema, no rash. [] Back: no CVA tenderness. [] Extremities: No tenderness, ROM intact, no edema. [] Neurologic: Alert and oriented X 3, no focal deficits noted. [] Psychologic: Affect normal, judgement normal, mood normal. [] EKG EKG [] Radiology/Procedures Radiology/Procedures [] Heart Score C/O Chest Pain: No Risk Factors: Risk Factors: DM, Current or recent (<one month) smoker, HTN, HLP, family history of CAD, obesity. Risk Scores: Risk Factors: DM, Current or recent (<one month) smoker, HTN, HLP, family history of CAD, obesity. Course & Med Decision Making Course & Med Decision Making Patient is a 75-year-old male with an indwelling catheter who presents with concern for catheter malfunction Vital signs not concerning. Physical exam noted above. Indwelling catheter changed with some urine output. Urinalysis has bacteria and is nitrite positive. Treated with Keflex. Discussed all findings with patient. Advised to take antibiotics as prescribed. Advised to call primary care physician and urologist in the morning. Gave return precautions to the ED. Patient grateful, verbalized understanding and agreed with plan of discharge. Dragon Disclaimer Dragon Disclaimer This electronic medical record was generated, in whole or in part, using a voice recognition dictation system. Departure Departure: Impression: Primary Impression: Malfunction of indwelling urinary catheter Additional Impression: Urinary tract infection Disposition: HOME / SELF CARE / HOMELESS Condition: GOOD Referrals: CLIFF BATEMAN MD (PCP) Patient Instructions: Puentes Catheter Care, Adult Additional Instructions: Thank you for coming into the emergency department tonight and allowing us to take care of you. Please read the attached information carefully go back over what we discussed. Please take all your medications as prescribed. Please call your primary care physician first thing in the morning to update on ED visit a nd set up a follow-up as soon as possible. Please come in to the ED with new or concerning symptoms as discussed. Scripts Cephalexin (KEFLEX) 500 Mg Capsule 1 CAP PO Q6HRS for UTI for 10 Days, #39 CAP Prov: BRADFORD GOMEZ MD 10/17/20 Problem Qualifiers BRADFORD GOMEZ MD Oct 16, 2020 23:13
[2020-10-17 00:12] LABS: BILIRUBIN,URINE NEG (NEG); CLARITY,URINE CLOUDY; COLOR,URINE YELLOW; GLUCOSE,URINE NEG (NEG)
[2020-10-17 00:23] LABS: NITRITE,URINE POS (NEG); UROBILINOGEN,URINE 0.2 mg/dL (0.2 mg/dL)
[2020-10-17 00:25] LABS: BACTERIA,URINE MOD /HPF (0-FEW)
[2020-10-17] MEDS ORDERED: CEPH500C PO (00:33)
[2020-10-17 00:50] VITALS: BP 124/80
[2020-10-17] MEDS ORDERED: CEPHALEXIN 250 MG CAPSULE PO ONE (01:00)
== END 2020-10-17 00:50 | disposition home or self-care (01) ==
LOC: ER 22:19
DX: T83.011A Breakdown (mechanical) of indwelling urethral catheter, initial encounter (principal); N39.0 Urinary tract infection, site not specified; J44.9 Chronic obstructive pulmonary disease, unspecified
CPT/HCPCS: 51702; 81001; 87086; 99283-25; 99285-25

== ENCOUNTER 2020-11-21 13:00 | Emergency (ER) | payer MEDICARE, OTHER ==
[~2020-11-21] VITALS: Ht 180.3 cm; Wt 72.0 kg
[~2020-11-21 13:00] MED LIST changes: +CEPH500C PO
[2020-11-21 13:10] VITALS: BP 139/89
--- NOTE | 2020-11-21 13:14 | PHYS DOC ---
Past History Past Medical History: Arthritis, COPD, Prostatitis, Other Additional Past Medical Histor: MS Past Surgical History: Appendectomy Alcohol Use: None Drug Use: Benzodiazepine Adult General Chief Complaint Chief Complaint: URINARY RETENTION HPI HPI Patient is a 75-year-old male presenting for urinary complaints. He is well covered in outpatient setting by primary care physician and urologist. He had a prostate reaming procedure performed 1 week ago and had Puentes catheter placed at that time. He Said Puentes catheter in place without issues until he was seen in outpatient office for follow-up yesterday, he had Puentes catheter removed and since then has had minimal urine output. States he has had a difficult time initiating an adequate urinary stream, states that most he dribbles. He called his physicians today who advised him to present to our ER for reinsertion of a Puentes catheter and close outpatient follow-up with them later next week. On arrival, patient denies any fevers, states he is otherwise been at baseline health and has been compliant with all prescribed home medications. Besides urinary retention and pubic fullness, he has no major complaints. Review of Systems Review of Systems Fourteen body systems of review of systems have been reviewed. See HPI for pert inent positives and negative responses, other sorensen all other systems are negative, non-pertinent or non-contributory Allergies Allergies Allergies Coded Allergies Type Severity Reaction Last Updated Verified No Known Drug Allergies 03/12/15 No Physical Exam Physical Exam Constitutional: Well developed, well nourished, no acute distress, non-toxic appearance. HENT: Normocephalic, atraumatic, bilateral external ears normal, oropharynx moist, no oral exudates, nose normal. Eyes: PERRLA, EOMI, conjunctiva normal, no discharge. Neck: Normal range of motion, no tenderness, supple, no stridor. Cardiovascular: Heart rate regular, sinus rhythm, no murmurs rubs or gallops Lungs & Thorax: Bilateral breath sounds clear to auscultation Abdomen: Bowel sounds normal, soft, suprapubic tenderness with palpation, no masses, no pulsatile masses. Nonsurgical abdomen, no peritoneal signs Skin: Warm, dry, no erythema, no rash. Back: No tenderness, no CVA tenderness. Extremities: No tenderness, no cyanosis, no clubbing, ROM intact, no edema. Neurologic: Alert and oriented X 3, grossly normal motor & sensory function, no focal deficits noted. Psychologic: Affect normal, judgement normal, mood normal. Current Patient Data Vital Signs Vital Signs Date Time Temp Pulse Resp B/P (MAP) Pulse Ox O2 Delivery O2 Flow Rate FiO2 11/21/20 13:10 98.1 92 18 139/89 (106) 98 Room Air Vital Signs Date Time Temp Pulse Resp B/P (MAP) Pulse Ox O2 Delivery O2 Flow Rate FiO2 11/21/20 13:10 98.1 92 18 139/89 (106) 98 Room Air EKG EKG [] Radiology/Procedures Radiology/Procedures [] Heart Score C/O Chest Pain: No Risk Factors: Risk Factors: DM, Current or recent (<one month) smoker, HTN, HLP, family history of CAD, obesity. Risk Scores: Risk Factors: DM, Current or recent (<one month) smoker, HTN, HLP, family history of CAD, obesity. Course & Med Decision Making Course & Med Decision Making ABCs unremarkable History and physical exam obtained. Bladder scan showed greater than 1400 mL retained urine 16 Tamazight Puentes catheter inserted without complication with greater than 1600 mL urine output and immediate relief in symptoms. Patient reevaluated several times after insertion and remained asymptomatic No further diagnostic work-up and/or intervention indicated at present. Patient has adequate follow-up in outpatient setting with PCP and urologist. Return precautions discussed with verbalized understanding, all questions and concerns addressed prior to ER departure Dragon Disclaimer Dragon Disclaimer This electronic medical record was generated, in whole or in part, using a voice recognition dictation system. Departure Departure: Impression: Primary Impression: Postoperative urinary retention Disposition: HOME / SELF CARE / HOMELESS Condition: IMPROVED Referrals: CLIFF BATEMAN MD (PCP) Patient Instructions: Urinary Retention, Acute, Male Additional Instructions: As discussed prior to ER departure, your vitals physical examination and subsequent insertion of Puentes catheter today were grossly uncomplicated. There were no emergent or surgical issues obviously identified. As previously recom mended by your outpatient physicians, you need to follow-up with them to continue to address your ongoing urinary and prostate issues. If any concerning signs or symptoms present prior to outpatient follow-up please do not hesitate to come back for repeat evaluation. It was a pleasure to take care of you and I wish you the best going forward DINORA HOWE DO Nov 21, 2020 13:14
== END 2020-11-21 13:52 | disposition home or self-care (01) ==
LOC: ER 13:00
DX: R33.9 Retention of urine, unspecified (principal); N99.89 Other postprocedural complications and disorders of genitourinary system; J44.9 Chronic obstructive pulmonary disease, unspecified
CPT/HCPCS: 51701; 51702; 99284-25

== ENCOUNTER 2020-12-01 15:36 | Emergency (ER) | payer MEDICARE, OTHER ==
[~2020-12-01] VITALS: Ht 180.3 cm; Wt 72.7 kg
--- NOTE | 2020-12-01 16:22 | PHYS DOC ---
Past History Past Medical History: Arthritis, COPD, Prostatitis, Other Additional Past Medical Histor: MS, enlarged protate Past Surgical History: Appendectomy, TURP, Other Alcohol Use: None Drug Use: Benzodiazepine General Adult EDM: Chief Complaint: URINE CATHETER PROBLEM HPI: HPI: Patient is a 75-year-old male today that presents with decreased urinary output. On November 12, 2020, patient had a TURP done by Dr. Mosley, had Puentes catheter placed during that time, had Puentes catheter removed [address] Mosley's office, returned here on November 21 for inability to void, patient was found to have 1400 mL of urine in his bladder and a 14 Portuguese Puentes catheter was placed at that time here in the emergency department. Patient states he has follow-up with his urologist this coming December 04, he presents today because he feels that the Puentes is not draining very well. Patient denies fever or chills, patient states he has a pressure feeling that he normally has when his bladder is full, but no pain or tenderness noted. Review of Systems: Review of Systems: Constitutional: Denies fever or chills Eyes: Denies change in visual acuity HENT: Denies nasal congestion or sore throat Respiratory: Denies cough or shortness of breath Cardiovascular: Denies chest pain or edema GI: Denies abdominal pain, nausea, vomiting, bloody stools or diarrhea : decrease urinary output, Musculoskeletal: Denies back pain or joint pain Integument: Denies rash Neurologic: Denies headache, focal weakness or sensory changes Endocrine: Denies polyuria or polydipsia Lymphatic: Denies swollen glands Psychiatric: Denies depression or anxiety Allergies: Allergies: Allergies Coded Allergies Type Severity Reaction Last Updated Verified No Known Drug Allergies 03/12/15 No Physical Exam: PE: Constitutional: Well developed, well nourished, no acute distress, non-toxic appearance. [] Abdomen: Bowel sounds normal, fullness noted at symphysis pubis. [] Skin: Warm, dry, no erythema, no rash. [] Back: No tenderness, no CVA tenderness. [] Neurologic: Alert and oriented X 3, normal motor function, normal sensory function, no focal deficits noted. [] Psychologic: Affect normal, judgement normal, mood normal. : Patient has a 14 Portuguese [address] catheter in place with drainage bag noted, urine in drainage bag is cloudy. [] Current Patient Data: Labs: Laboratory Tests Test 12/01/20 16:39 Urine Collection Type Clean catch Urine Color Yellow Urine Clarity Hazy Urine pH 6.5 Urine Specific Haines 1.015 Urine Protein Neg Urine Glucose (UA) Neg mg/dL Urine Ketones (Stick) Neg mg/dL Urine Blood Mod Urine Nitrite Pos Urine Bilirubin Neg Urine Urobilinogen Dipstick 0.2 mg/dL Urine Leukocyte Esterase Large Urine RBC 20-40 /HPF Urine WBC >40 /HPF Urine Squamous Epithelial Cells Few /LPF Urine Bacteria Mod /HPF Vital Signs: Vital Signs Date Time Temp Pulse Resp B/P (MAP) Pulse Ox O2 Delivery O2 Flow Rate FiO2 12/01/20 15:54 98.3 93 16 124/77 (93) 98 Room Air EKG: EKG: [] Radiology/Procedures: Radiology/Procedures: [] Heart Score: C/O Chest Pain: N/A Risk Factors: Risk Factors: DM, Current or recent (<one month) smoker, HTN, HLP, family history of CAD, obesity. Risk Scores: Score 0 - 3: 2.5% MACE over next 6 weeks - Discharge Home Score 4 - 6: 20.3% MACE over next 6 weeks - Admit for Clinical Observation Score 7 - 10: 72.7% MACE over next 6 weeks - Early Invasive Strategies Course & Med Decision Making: Course & Med Decision Making Pertinent Labs and Imaging studies reviewed. (See chart for details) [We will have nursing staff evaluate patient with bladder scanner to determine if urine is in the bladder. RN obtained a bladder scan of the patient, patient found to have about 1100 mL of urine in his bladder, catheter irrigated by the nurses, drainage bag change, catheter is now draining freely. 175 patient reassessed patient states he feels much better, patient informed that his urine results showed an infectious process, will order oral antibiotics for patient, patient is alert and orientated and nontoxic looking, will also send urine off for culture patient states he has a history of a fungal infection in the past. Will give patient a dose of oral antibiotics here and send prescription electronically to his pharmacy. Patient states he will be seeing his urologist on Wednesday this week, instructed patient to call urologist office in the a.m. to update them on his progress. Patient verbalizes understanding of this and agrees with plan of care. Abhi Disclaimer: Abhi Disclaimer: This electronic medical record was generated, in whole or in part, using a voice recognition dictation system. Departure Departure: Impression: Primary Impression: Urinary catheter insertion/adjustment/removal Additional Impression: UTI (urinary tract infection) due to urinary indwelling Puentes catheter Qualified Codes: T83.511A - Infection and inflammatory reaction due to indwelling urethral catheter, initial encounter; N39.0 - Urinary tract infection, site not specified Disposition: HOME / SELF CARE / HOMELESS Condition: STABLE Referrals: CLIFF BATEMAN MD (PCP) Patient Instructions: Puentes Catheter Care, Adult, Urinary Tract Infection Additional Instructions: Follow-up with Dr. Kirkland your urologist by phone on Wednesday and update of his on urgency room visit today, keep appointment time for Wednesday Start Cipro 500 mg twice daily for 10 days Return to the emergency department for fever, chills, continue urinary retention with catheter, or increased abdominal pain Scripts Ciprofloxacin Hcl (CIPROFLOXACIN HCL) 500 Mg Tablet 1 TAB PO BID for UTI for 10 Days, #20 TAB Prov: KE MCKEON ROCKET [employer] SUPERVISOR 12/01/20 KE MCKEON ROCKET [employer] SUPERVISOR Dec 01, 2020 16:22
[2020-12-01 17:36] LABS: BILIRUBIN,URINE NEG (NEG); CLARITY,URINE HAZY; COLOR,URINE YELLOW; GLUCOSE,URINE NEG (NEG); NITRITE,URINE POS (NEG); RBC,URINE 20-40 /HPF (0-2); UROBILINOGEN,URINE 0.2 mg/dL (0.2 mg/dL); WBC,URINE >40 /HPF (0-4)
[2020-12-01 17:37] LABS: BACTERIA,URINE MOD /HPF (0-FEW); SQUAMOUS EPITHELIAL CELL,UR FEW /LPF
[2020-12-01] MEDS ORDERED: CIPR500T2 PO (18:06)
[2020-12-01] MEDS ORDERED: CIPROFLOXACIN HCL 500 MG TABLET ONE (18:09)
[2020-12-01 18:15] VITALS: BP 118/71
[2020-12-01] MEDS ORDERED: CIPROFLOXACIN HCL 500 MG TABLET PO ONE (18:15)
== END 2020-12-01 18:23 | disposition home or self-care (01) ==
LOC: ER 15:36
DX: Z46.6 Encounter for fitting and adjustment of urinary device (principal); T83.511A Infection and inflammatory reaction due to indwelling urethral catheter, initial encounter; N39.0 Urinary tract infection, site not specified; M19.90 Unspecified osteoarthritis, unspecified site; J44.9 Chronic obstructive pulmonary disease, unspecified; Z90.89 Acquired absence of other organs
CPT/HCPCS: 81001; 87077; 87086; 87186; 99284

== ENCOUNTER 2020-12-02 21:54 | Emergency (ER) | payer MEDICARE, OTHER ==
[~2020-12-02] VITALS: Ht 180.3 cm; Wt 72.7 kg
[~2020-12-02 21:54] MED LIST changes: +CIPR500T2 PO
[2020-12-02 21:55] VITALS: BP 124/85
--- NOTE | 2020-12-02 22:23 | PHYS DOC ---
Past History Past Medical History: Arthritis, COPD, Prostatitis, Other Additional Past Medical Histor: MS, enlarged protate (DONTE RODRIGUEZ APRN) Past Surgical History: Appendectomy, TURP, Other (DONTE RODRIGUEZ APRN) Alcohol Use: None Drug Use: Benzodiazepine (DONTE RODRIGUEZ APRN) General Adult EDM: Chief Complaint: URINE CATHETER PROBLEM HPI: HPI: Patient is a 75-year-old male who presents with urinary retention. Patient was in the emergency room yesterday and started on antibiotics for UTI. Patient had catheter placed a week ago and has had issues with draining multiple times. Reports pain 09/17. Patient has a appointment with urologist on Wednesday. (DONTE RODRIGUEZ APRN) Review of Systems: Review of Systems: ROS At least 10 ROS systems have been reviewed and are negative except as documented in the HPI. General: Negative except as outlined in HPI above. Skin: Negative except as outlined in HPI above. HEENT: Negative except as outlined in HPI above. Neck: Negative except as outlined in HPI above. Respiratory: Negative except as outlined in HPI above.. Cardiovascular: Negative except as outlined in HPI above. Abdomen: Negative except as outlined in HPI above. : Negative except as outlined in HPI above. Back/MSK: Negative except as outlined in HPI above. Neuro: Negative except as outlined in HPI above. Psych: Negative except as outlined in HPI above. (DONTE RODRIGUEZ APRN) Allergies: Allergies: Allergies Coded Allergies Type Severity Reaction Last Updated Verified No Known Drug Allergies 03/12/15 No (DONTE RODRIGUEZ APRN) Physical Exam: PE: Constitutional: Well developed, well nourished, no acute distress, non-toxic appearance. [] HENT: Normocephalic, atraumatic, bilateral external ears normal, oropharynx moist, no oral exudates, nose normal. [] Eyes: PERRLA, EOMI, conjunctiva normal, no discharge. [] Neck: Normal range of motion, no tenderness, supple, no stridor. [] Cardiovascular:Heart rate regular rhythm, no murmur [] Lungs & Thorax: Bilateral breath sounds clear to auscultation [] Abdomen: Bowel sounds normal, soft, no tenderness, no masses, no pulsatile masses. [] Skin: Warm, dry, no erythema, no rash. [] Back: No tenderness, no CVA tenderness. [] Extremities: No tenderness, no cyanosis, no clubbing, ROM intact, no edema. [] Neurologic: Alert and oriented X 3, normal motor function, normal sensory function, no focal deficits noted. [] Psychologic: Affect normal, judgement normal, mood normal. [] (DONTE RODRIGUEZ APRN) EKG: EKG: [] (DONTE RODRIGUEZ APRN) Radiology/Procedures: Radiology/Procedures: [] (DONTE RODRIGUEZ APRN) Heart Score: C/O Chest Pain: No Risk Factors: Risk Factors: DM, Current or recent (<one month) smoker, HTN, HLP, family history of CAD, obesity. Risk Scores: Score 0 - 3: 2.5% MACE over next 6 weeks - Discharge Home Score 4 - 6: 20.3% MACE over next 6 weeks - Admit for Clinical Observation Score 7 - 10: 72.7% MACE over next 6 weeks - Early Invasive Strategies (DONTE RODRIGUEZ APRN) Course & Med Decision Making: Course & Med Decision Making Pertinent Labs and Imaging studies reviewed. (See chart for details) [] 75-year-old presents with urinary retention. Patient had catheter placed 1 week ago and has been having issues with clots. Patient was started on antibiotics yesterday for UTI and reports he started this morning. Catheter was irrigated by RN. Patient reports his pain has improved and catheter started draining. Patient has an appointment with urology on Wednesday. (DONTE RODRIGUEZ APRN) Course & Med Decision Making Did not see or evaluate patient. Did not discuss patient with GRAIN SHIPPER. Agree with GRAIN SHIPPER's work-up and disposition per note. (BRADFORD GOMEZ MD) Dragon Disclaimer: Dragon Disclaimer: This electronic medical record was generated, in whole or in part, using a voice recognition dictation system. (DONTE RODRIGUEZ APRN) Departure Departure: Impression: Primary Impression: UTI (urinary tract infection) due to urinary indwelling Puentes catheter Qualified Codes: T83.511A - Infection and inflammatory reaction due to indwelling urethral catheter, initial encounter; N39.0 - Urinary tract infection, site not specified Additional Impression: Urinary retention Disposition: HOME / SELF CARE / HOMELESS Condition: STABLE Referrals: CLIFF BATEMAN MD (PCP) Patient Instructions: Urinary Retention, Acute, Male, [id number] Additional Instructions: You were seen in the emergency room for urinary retention. Please follow-up with your urologist on Wednesday for further evaluation. Continue taking your antibiotic to treat your UTI. Return to the emergency room if you have w orsening symptoms or concerns. EMERGENCY DEPARTMENT GENERAL DISCHARGE INSTRUCTIONS Thank you for coming to [facility] (ED) today and trusting us with you care. We trust that you had a positivie experience in our Emergency Department. If you wish to speak to the department management, you may call the director at [phone]. YOUR FOLLOW UP INSTRUCTIONS ARE FOLLOWS: 1. Do you have a private Doctor? If you do not have a private doctor, please ask for a resource list of physicians or clinics that may be able to assist you with follow up care. 2. The Emergency Physician has interpreted your x-rays. The X-Ray specialist will also review them. If there is a change in the findings, you will be notified in 48 hours when at all possible. 3. A lab test or culture has been done, your results will be reviewed and you will be notified if you need a change in treatment. ADDITIONAL INSTRUCTIONS AND INFORMATION: 1. Your care today has been supervised by a physician who is specially trained in emergency care. Many problems require more than one evaluation for a complete diagnosis and treatment. We recommend that you schedule your follow up appointment as recommended to ensure complete treatment of you illness or injury. If you are unable to obtain follow up care and continue to have a problem, or if your condition worsens, we recommend that you return to the ED. 2. We are not able to safely determine your condition over the phone nor are we able to give sound medical advice over the phone. For these safety reasons, if you call for medical advice we will ask you to come to the ED for further evaluation. 3. If you have any questions regarding these discharge instructions please call the ED at [phone]. SAFETY INFORMATION: In the interest of safety, wellness, and injury prevention; we encourage you to wear your sealbelt, if you smoke; quite smoking, and we encourage family to use a protective helmet for bicycling and other sporting events that present an increased risk for head injury. IF YOUR SYMPTOMS WORSEN OR NEW SYMPTOMS DEVELOP, OR YOU HAVE CONCERNS ABOUT YOUR CONDITION; OR IF YOUR CONDITION WORSENS WHILE YOU ARE WAITING FOR YOUR FOLLOW UP APPOINTMENT; EITHER CONTACT YOUR PRIMARY CARE DOCTOR, THE PHYSICIAN WHOSE NAME AND NUMBER YOU WERE GIVEN, OR RETURN TO THE ED IMMEDIATELY. DONTE RODRIGUEZ APRN Dec 02, 2020 22:23 BRADFORD GOMEZ MD Dec 03, 2020 03:07
== END 2020-12-02 23:15 | disposition home or self-care (01) ==
LOC: ER 21:54
DX: T83.511A Infection and inflammatory reaction due to indwelling urethral catheter, initial encounter (principal); N39.0 Urinary tract infection, site not specified; R33.9 Retention of urine, unspecified; M19.90 Unspecified osteoarthritis, unspecified site; J44.9 Chronic obstructive pulmonary disease, unspecified; Z90.89 Acquired absence of other organs
CPT/HCPCS: 99281; 99282

== ENCOUNTER 2021-01-12 13:28 | Emergency (ER) | payer MEDICARE, OTHER ==
[~2021-01-12] VITALS: Ht 180.3 cm; Wt 72.7 kg
--- NOTE | 2021-01-12 14:28 | PHYS DOC ---
Past History Past Medical History: Arthritis, COPD, Prostatitis, Other Additional Past Medical Histor: MS, enlarged protate Past Surgical History: Appendectomy, TURP, Other Additional Past Surgical Histo: prostate clean out Smoking: Less than 1pk/day Alcohol Use: None Drug Use: Benzodiazepine Adult General Chief Complaint Chief Complaint: ABDOMINAL PAIN HPI HPI Patient is a 75-year-old male presenting to the ED for upper abdominal pain. He says for the last 3 days he has been experiencing increased constipation, but finally had a bowel movement of normal color and consistency last night. When he woke up this morning, he felt severely nauseous and weak, but denied vomiting. Also reports a circumferential band of tension at the lower portion of his rib cage that is always present, but feels different at this time, worse with an upright position. Denies any other abdominal pain. Denies fevers, chills, shortness of breath, chest pain. Patient has urinary retention secondary to MS and regularly straight caths at home. He is asking to have a Puentes put in today. Review of Systems Review of Systems Constitutional: Denies fever or chills, reports weakness and fatigue. [] Eyes: Denies change in visual acuity, redness, or eye pain [] HENT: Denies nasal congestion or sore throat [] Respiratory: Denies cough or shortness of breath [] Cardiovascular: No additional information not addressed in HPI [] GI: Confirms band of tension around bottom of rib cage, nausea, constipation. Denies vomiting, bloody stools or diarrhea [] : Denies dysuria or hematuria. Patient has urinary retention secondary to MS, currently taking an unknown antibiotic. [] Musculoskeletal: Denies back pain or joint pain [] Integument: Denies rash or skin lesions [] Neurologic: Denies headache, focal weakness or sensory changes [] Endocrine: Denies polyuria or polydipsia [] All other systems were reviewed and found to be within normal limits, except as documented in this note. Current Medications Current Medications Currently on an unknown antibiotic for UTI secondary to urinary retention. Allergies Allergies Allergies Coded Allergies Type Severity Reaction Last Updated Verified No Known Drug Allergies 03/12/15 No Physical Exam Physical Exam Constitutional: Thin appearing, no acute distress, non-toxic appearance. [] HENT: Normocephalic, atraumatic, bilateral external ears normal, oropharynx moist, no oral exudates, nose normal. [] Eyes: PERRLA, EOMI, conjunctiva normal, no discharge. [] Neck: Normal range of motion, no tenderness, supple, no stridor. [] Cardiovascular:Heart rate regular rhythm, no murmur [] Lungs & Thorax: Bilateral breath sounds clear to auscultation [] Abdomen: Bowel sounds normal, soft, tenderness located over bottom portion of rib cage, no masses, no pulsatile masses. [] Skin: Warm, dry, no erythema, no rash. [] Back: No tenderness, no CVA tenderness. [] Extremities: No tenderness, no cyanosis, no clubbing, ROM intact, no edema. Obvious contractures of upper and lower extremities secondary to rheumatoid arthritis [] Neurologic: Alert and oriented X 3, normal motor function, normal sensory function, no focal deficits noted. [] Psychologic: Affect normal, judgement normal, mood normal. [] Current Patient Data Vital Signs Vital Signs Date Time Temp Pulse Resp B/P (MAP) Pulse Ox O2 Delivery O2 Flow Rate FiO2 01/12/21 13:55 98.3 83 16 137/76 (96) 100 Room Air Lab Results Laboratory Tests Test 01/12/21 14:52 White Blood Count 12.8 x10^3/uL Red Blood Count 4.39 x10^6/uL Hemoglobin 14.1 g/dL Hematocrit 42.3 % Mean Corpuscular Volume 97 fL Mean Corpuscular Hemoglobin 32 pg Mean Corpuscular Hemoglobin Concent 33 g/dL Red Cell Distribution Width 14.0 % Platelet Count 301 x10^3/uL Neutrophils (%) (Auto) 90 % Lymphocytes (%) (Auto) 6 % Monocytes (%) (Auto) 4 % Eosinophils (%) (Auto) 0 % Basophils (%) (Auto) 0 % Neutrophils # (Auto) 11.5 x10^3uL Lymphocytes # (Auto) 0.7 x10^3/uL Monocytes # (Auto) 0.5 x10^3/uL Eosinophils # (Auto) 0.0 x10^3/uL Basophils # (Auto) 0.0 x10^3/uL Sodium Level 139 mmol/L Potassium Level 4.3 mmol/L Chloride Level 102 mmol/L Carbon Dioxide Level 25 mmol/L Anion Gap 12 Blood Urea Nitrogen 17 mg/dL Creatinine 1.1 mg/dL Estimated GFR (Cockcroft-Gault) 65.3 BUN/Creatinine Ratio 15 Glucose Level 106 mg/dL Calcium Level 9.0 mg/dL Total Bilirubin 0.5 mg/dL Aspartate Amino Transf (AST/SGOT) 20 U/L Alanine Aminotransferase (ALT/SGPT) 28 U/L Alkaline Phosphatase 90 U/L Troponin I High Sensitivity 8 ng/L Total Protein 6.2 g/dL Albumin 3.3 g/dL Albumin/Globulin Ratio 1.1 Lipase 94 U/L Current Medications Medications (Trade) Dose Ordered Sig/[place] Route PRN Reason Start Time Stop Time Status Last Admin Dose Admin Iohexol (Omnipaque 300 Mg/ml) 75 ml 1X ONCE IV 01/12/21 15:00 01/12/21 15:01 DC 01/12/21 16:15 Info (Do NOT chart on this entry -- for MONITORING) 1 each PRN DAILY PRN MC SEE COMMENTS 01/12/21 15:00 01/14/21 14:59 EKG EKG EKG ordered and interpreted by myself at 1501 hrs. is sinus rhythm at 75 bpm, unremarkable intervals, left axis deviation, no acute ischemic findings, no STEMI Radiology/Procedures Radiology/Procedures XR CHEST 1V History: Reason: epigastric pain / Spl. Instructions: / History: Comparison: May 21, 2018 Findings: No consolidation or pleural effusion. Normal heart size. No pneumothorax. Impression: 1. No acute cardiopulmonary process. Electronically signed by: Mike Dickerson DO (01/12/2021 3:08 PM) [facility] //////////////////// Examination: CT of the abdomen pelvis with IV contrast HISTORY: History of epigastric pain COMPARISON: 08/27/2020 TECHNIQUE: Axial CT images of the abdomen pelvis were performed with IV contrast. Coronal and sagittal reformats are performed Exposure: One or more of the following individualized dose reduction techniques were utilized for this examination: 1. Automated exposure control 2. Adjustment of the mA and/or kV according to patient size 3. Use of iterative r econstruction technique FINDINGS: The bibasilar lungs are clear. No evidence of free air identified in the abdomen. The visualized liver, spleen, adrenals grossly appears unremarkable. The gallbladder is mildly distended. The stomach is mildly distended. Minimal fluid distended small bowel loops in lower mid abdomen. 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 Feces and gas noted in the colon. Puentes catheter identified in the urinary bladder. The bilateral kidneys enhance symmetrically. Mild degenerative changes lumbar spine. IMPRESSION: 1. Minimal fluid distended small bowel loops in the lower mid abdomen, nonspecific. 2. 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 No acute findings. Electronically signed by: Garth Angeles MD (01/12/2021 4:54 PM) [id number] Heart Score C/O Chest Pain: No HEART Score for Chest Pain: HEART Score for Chest Pain Response (Comments) Value History Slighlty/Non-Suspicious 0 ECG Normal 0 Age > 65 2 Risk Factors 1 or 2 Risk Factors 1 Total 3 Risk Factors: Risk Factors: DM, Current or recent (<one month) smoker, HTN, HLP, family history of CAD, obesity. Risk Scores: Risk Factors: DM, Current or recent (<one month) smoker, HTN, HLP, family history of CAD, obesity. Course & Med Decision Making Course & Med Decision Making Pertinent Labs and Imaging studies reviewed. (See chart for details) [] Dragon Disclaimer Dragon Disclaimer This electronic medical record was generated, in whole or in part, using a voice recognition dictation system. Departure Departure: Impression: Primary Impression: Abdominal pain Additional Impressions: Multiple sclerosis UTI (urinary tract infection) Disposition: HOME / SELF CARE / HOMELESS Condition: STABLE Referrals: CLIFF BATEMAN MD (PCP) Additional Instructions: You have been evaluated in the Emergency Department today for abdominal pain. Your evaluation was not suggestive of any emergent condition requiring medical intervention at this time. However, some abdominal problems make take more time to appear. Therefore, it is important for you to watch for any new symptoms or worsening of your current condition. Please contact your primary care provider to review ER visit today. You will need to continue supportive care practices for your likely self-limiting episode of abdominal pain from constipation. You also need to follow-up regarding your multiple sclerosis and known UTI for which you are on antibiotics. You will need to address Puentes issue with your primary care provider and outpatient urologist Return to the Emergency Department if you experience worsening pain, persistent fevers greater than 100.4, recurrent vomiting, blood in vomit, blood in stool, dark tarry stool, chest pain, difficulty breathing, or any other concerning symptoms. Problem Qualifiers DINORA HOWE DO Jan 12, 2021 14:28
[2021-01-12] MEDS ORDERED: IOHEXOL 300 MG/ML 75 ML VIAL. IV ONE (15:00)
[2021-01-12] MEDS ORDERED: CONTRAST GIVEN. MC PRN (15:00)
--- NOTE | 2021-01-12 15:10 | RAD ---
XR CHEST 1V History: Reason: epigastric pain / Spl. Instructions: / History: Comparison: May 21, 2018 Findings: No consolidation or pleural effusion. Normal heart size. No pneumothorax. Impression: 1. No acute cardiopulmonary process. Electronically signed by: Mike Dickerson DO (01/12/2021 3:08 PM) [facility]
[2021-01-12 15:40] LABS: BASO % 0 % (0-3); EOS % 0 % (0-3); HEMATOCRIT 42.3 % (39.0-53.0); HEMOGLOBIN 14.1 g/dL (13.0-17.5); LYMPH # 0.7 x10^3/uL (1.0-4.8); LYMPH % 6 % (24-48); MEAN CORPUSCULAR HEMOGLOBIN 32 pg (25-35); MEAN CORPUSCULAR HGB CONC 33 g/dL (31-37); MEAN CORPUSCULAR VOLUME 97 fL (79-100); MONO # 0.5 x10^3/uL (0.0-1.1); MONO % 4 % (0-9); NEUT # 11.5 x10^3uL (1.8-7.7); NEUT % 90 % (31-73); PLATELET COUNT 301 x10^3/uL (140-400); RED BLOOD COUNT 4.39 x10^6/uL (4.30-5.70); WHITE BLOOD COUNT 12.8 x10^3/uL (4.0-11.0)
[2021-01-12 15:49] LABS: CREATININE 1.1 mg/dL (0.7-1.3); GFR 65.3; POTASSIUM 4.3 mmol/L (3.5-5.1)
[2021-01-12 15:55] LABS: ALBUMIN 3.3 g/dL (3.4-5.0); ALBUMIN/GLOBULIN RATIO 1.1 (1.0-1.7); TOTAL BILIRUBIN 0.5 mg/dL (0.2-1.0); TOTAL PROTEIN 6.2 g/dL (6.4-8.2)
[2021-01-12 16:34] VITALS: BP 134/68
--- NOTE | 2021-01-12 16:56 | RAD ---
Examination: CT of the abdomen pelvis with IV contrast HISTORY: History of epigastric pain COMPARISON: 08/27/2020 TECHNIQUE: Axial CT images of the abdomen pelvis were performed with IV contrast. Coronal and sagitta l reformats are performed Exposure: One or more of the following individualized dose reduction techniques were utilized for thi s examination: 1. Automated exposure control 2. Adjustment of the mA and/or kV according to patient size 3. Use of iterative reconstruction technique FINDINGS: The bibasilar lungs are clear. No evidence of free air identified in the abdomen. The visualized live r, spleen, adrenals grossly appears unremarkable. The gallbladder is mildly distended. The stomach is mildly distended. Minimal fluid distended small bowel loops in lower mid abdomen. 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 Feces and gas noted in the colon. Puentes catheter identified in the urinary bladder. The bilateral kidneys enhance symmetrically. Mild d egenerative changes lumbar spine. IMPRESSION: 1. Minimal fluid distended small bowel loops in the lower mid abdomen, nonspecific. 2. 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 No acute finding s. Electronically signed by: Garth Angeles MD (01/12/2021 4:54 PM) [id number]
--- NOTE | 2021-01-12 17:15 | EKG ---
[address] [address] Test Date: 2021-01-12 Test Time: 14:56:19 Pat Name: ROGELIO SQUIRES Department: Room: Gender: M Griddle Cook: CHAYA : 1945 Requested By: DINORA HOWE Order Number: [id number] Reading MD: Scar Santo MD Measurements Intervals [place] Rate: 75 P: 64 [place]: 134 QRS: -40 QRSD: 98 T: 34 QT: 384 QTc: 431 Interpretive Statements SINUS RHYTHM LAD Electronically Signed On 01-12-2021 20:19:40 SAMPLE DISPLAY PREPARER by Scar Santo MD
== END 2021-01-12 17:43 | disposition home or self-care (01) ==
LOC: ER 13:28
DX: N39.0 Urinary tract infection, site not specified (principal); G35 Multiple sclerosis; M06.9 Rheumatoid arthritis, unspecified; J44.9 Chronic obstructive pulmonary disease, unspecified; F17.200 Nicotine dependence, unspecified, uncomplicated; Z90.89 Acquired absence of other organs
CPT/HCPCS: 36415; 51702; 71045; 74177; 80053; 83690; 84484; 85025; 93005; 99285; Q9967

== ENCOUNTER 2021-02-04 11:31 | Emergency (ER) | payer MEDICARE, OTHER ==
[~2021-02-04] VITALS: Ht 180.3 cm; Wt 72.7 kg
[2021-02-04 12:30] VITALS: BP 120/76
[2021-02-04 13:03] LABS: INFLUENZA A PATIENT NEGATIVE (NEGATIVE); INFLUENZA B PATIENT NEGATIVE (NEGATIVE)
[2021-02-04] MEDS ORDERED: IV NORMAL SALINE 1,000ML 1,000 ML IV ONE (13:30)
--- NOTE | 2021-02-04 13:43 | PHYS DOC ---
Past History Past Medical History: Arthritis, COPD, Prostatitis, Other Additional Past Medical Histor: MS, enlarged protate Past Surgical History: Appendectomy, TURP, Other Additional Past Surgical Histo: prostate clean out Smoking: Less than 1pk/day Alcohol Use: None Drug Use: Benzodiazepine General Adult EDM: Chief Complaint: FATIGUE HPI: HPI: 75-year-old male presents with fatigue and general malaise. Patient states that he has been feeling under the weather for a couple of days. He has not measured a fever at home. He has some body aches but is most bothered by nausea without vomiting. He has not had a bowel movement in 4 days. He typically has a slow digestive system and does intermittently get constipated. He would like tested for Covid and influenza. Patient has multiple sclerosis and rheumatoid arthritis at baseline. Review of Systems: Review of Systems: Constitutional: Denies fever or chills. Body aches, fatigue Eyes: Denies change in visual acuity HENT: Denies nasal congestion or sore throat Respiratory: Denies cough or shortness of breath Cardiovascular: Denies chest pain or edema GI: Constipation, nausea. Denies abdominal pain, vomiting, bloody stools or diarrhea : Denies dysuria Musculoskeletal: Denies back pain or joint pain Integument: Denies rash Neurologic: Denies headache, focal weakness or sensory changes Endocrine: Denies polyuria or polydipsia Lymphatic: Denies swollen glands Psychiatric: Denies depression or anxiety Current Medications: Current Meds: Current Medications Medications (Trade) Dose Ordered Sig/[facility] Start Time Stop Time Status Last Admin Dose Admin Sodium Chloride 1,000 ml @ 1,000 mls/hr 1X ONCE 02/04/21 13:30 02/04/21 14:29 Allergies: Allergies: Allergies Coded Allergies Type Severity Reaction Last Updated Verified No Known Drug Allergies 03/12/15 No Physical Exam: PE: Constitutional: Well developed, well nourished, no acute distress, non-toxic appearance. [] HENT: Normocephalic, atraumatic, bilateral external ears normal, oropharynx moist, no oral exudates, nose normal. [] Eyes: PERRLA, EOMI, conjunctiva normal, no discharge. [] Neck: Normal range of motion, no tenderness, supple, no stridor. [] Cardiovascular:Heart rate regular rhythm, no murmur [] Lungs & Thorax: Bilateral breath sounds clear to auscultation [] Abdomen: Bowel sounds normal, soft, no tenderness, no masses, no pulsatile masses. [] Skin: Warm, dry, no erythema, no rash. [] Back: No tenderness, no CVA tenderness. [] Extremities: No tenderness, no cyanosis, no clubbing, ROM intact, no edema. [] Neurologic: Alert and oriented X 3, normal motor function, normal sensory function, no focal deficits noted. [] Psychologic: Affect normal, judgement normal, mood normal. [] Current Patient Data: Labs: Laboratory Tests Test 02/04/21 12:28 Influenza Type A (Rapid) Negative (NEGATIVE) Influenza Type B (Rapid) Negative (NEGATIVE) Vital Signs: Vital Signs Date Time Temp Pulse Resp B/P (MAP) Pulse Ox O2 Delivery O2 Flow Rate FiO2 02/04/21 12:30 97.9 84 20 120/76 (91) 97 Room Air EKG: EKG: Sinus rhythm, rate 70, leftward axis, no ST elevation or depression. [] Radiology/Procedures: Radiology/Procedures: [] Impressions: XR ABDOMEN 1V, XR CHEST 1V History: Fatigue. Constipation 4 days. Comparison: 01/12/2021 chest x-ray and abdominal pelvic CT. Technique: Portable frontal chest and supine radiographs of the abdomen and pelvis. Findings: Chest: Clear lungs. Normal cardiomediastinal silhouette. Bowel gas pattern: Nonspecific, nonobstructive bowel gas pattern with gas and stool throughout the colon to the rectum. Prominent well-formed stool at the rectum. No abnormally dilated small bowel loops. Free air: None. Abnormal calcifications: Multiple pelvic phleboliths. Bones: Degenerative changes of the spine and hips. Other: None. Impression: 1. No acute cardiopulmonary findings. 2. Nonobstructive bowel gas pattern with prominent colonic stool particularly at the rectum. Electronically signed by: Luis Bonilla MD (02/04/2021 2:45 PM) [facility] DICTATED AND SIGNED BY: LUIS BONILLA MD DATE: 02/04/21 144 CC: DOTTIE BARRY DO; CLIFF BATEMAN MD ~MTH0 0 Heart Score: C/O Chest Pain: N/A Risk Factors: Risk Factors: DM, Current or recent (<one month) smoker, HTN, HLP, family history of CAD, obesity. Risk Scores: Score 0 - 3: 2.5% MACE over next 6 weeks - Discharge Home Score 4 - 6: 20.3% MACE over next 6 weeks - Admit for Clinical Observation Score 7 - 10: 72.7% MACE over next 6 weeks - Early Invasive Strategies Course & Med Decision Making: Course & Med Decision Making Pertinent Labs and Imaging studies reviewed. (See chart for details) The patient's labs are essentially unremarkable. His chest x-ray is negative for acute findings. His KUB shows colonic stool burden especially in the rectum. We will give an enema in the ED and discharged home with magnesium citrate. The patient will prefer to take the enema and do it at home as well as the magnesium citrate. I believe this is reasonable. He is stable for discharge at this time. We also discussed regulating his bowels with MiraLAX. [] Dragon Disclaimer: Dragon Disclaimer: This electronic medical record was generated, in whole or in part, using a voice recognition dictation system. Departure Departure: Impression: Primary Impression: Constipation by delayed colonic transit Disposition: HOME / SELF CARE / HOMELESS Condition: IMPROVED Referrals: CLIFF BATEMAN MD (PCP) Patient Instructions: Constipation, Adult, [id number] Additional Instructions: You can purchase MiraLAX or the generic equivalent for daily use. Start with a single dose daily. You should have an easy bowel movement at least every other day. If not, you can increase to 1.5 or 2 doses daily. Adjust the amount that she use each day so that she did not have diarrhea but that you have a bowel movement at least every other day. DOTTIE BARRY DO Feb 04, 2021 13:43
[2021-02-04 14:06] LABS: BASO # 0.1 x10^3/uL (0.0-0.2); BASO % 1 % (0-3); EOS % 0 % (0-3); HEMATOCRIT 44.2 % (39.0-53.0); HEMOGLOBIN 14.8 g/dL (13.0-17.5); LYMPH # 0.8 x10^3/uL (1.0-4.8); LYMPH % 5 % (24-48); MEAN CORPUSCULAR HEMOGLOBIN 32 pg (25-35); MEAN CORPUSCULAR HGB CONC 33 g/dL (31-37); MEAN CORPUSCULAR VOLUME 96 fL (79-100); MONO # 0.5 x10^3/uL (0.0-1.1); MONO % 3 % (0-9); NEUT # 12.9 x10^3uL (1.8-7.7); NEUT % 91 % (31-73); PLATELET COUNT 310 x10^3/uL (140-400); RED BLOOD COUNT 4.59 x10^6/uL (4.30-5.70); RED CELL DISTRIBUTION WIDTH 13.8 % (11.5-14.5); WHITE BLOOD COUNT 14.2 x10^3/uL (4.0-11.0)
[2021-02-04 14:15] LABS: CALCIUM 9.4 mg/dL (8.5-10.1); CREATININE 1.3 mg/dL (0.7-1.3); GFR 53.8; POTASSIUM 4.2 mmol/L (3.5-5.1)
[2021-02-04 14:21] LABS: ALBUMIN 3.3 g/dL (3.4-5.0); TOTAL BILIRUBIN 0.5 mg/dL (0.2-1.0); TOTAL PROTEIN 6.7 g/dL (6.4-8.2)
[2021-02-04 14:31] LABS: BILIRUBIN,URINE NEG (NEG); CLARITY,URINE CLEAR; COLOR,URINE YELLOW; GLUCOSE,URINE NEG (NEG); NITRITE,URINE NEG (NEG); UROBILINOGEN,URINE 0.2 mg/dL (0.2 mg/dL)
[2021-02-04 14:32] LABS: BACTERIA,URINE 0 /HPF (0-FEW); SQUAMOUS EPITHELIAL CELL,UR OCC /LPF
--- NOTE | 2021-02-04 14:47 | RAD ---
XR ABDOMEN 1V, XR CHEST 1V History: Fatigue. Constipation 4 days. Comparison: 01/12/2021 chest x-ray and abdominal pelvic CT. Technique: Portable frontal chest and supine radiographs of the abdomen and pelvis. Findings: Chest: Clear lungs. Normal cardiomediastinal silhouette. Bowel gas pattern: Nonspecific, nonobstructive bowel gas pattern with gas and stool throughout the co cortez to the rectum. Prominent well-formed stool at the rectum. No abnormally dilated small bowel loops . Free air: None. Abnormal calcifications: Multiple pelvic phleboliths. Bones: Degenerative changes of the spine and hips. Other: None. Impression: 1. No acute cardiopulmonary findings. 2. Nonobstructive bowel gas pattern with prominent colonic stool particularly at the rectum. Electronically signed by: Luis Bonilla MD (02/04/2021 2:45 PM) [facility]
[2021-02-04] MEDS ORDERED: SODIUM PHOSPHATES 19/7GM 133 ML ENEMA. PR ONE (16:30)
[2021-02-04] MEDS ORDERED: MAGNESIUM CITRATE 296 ML SOLUTION. PO ONE (16:30)
--- NOTE | 2021-02-04 16:37 | EKG ---
[address] [address] Test Date: 2021-02-04 Test Time: 13:28:02 Pat Name: ROGELIO SQUIRES Department: Room: Gender: M Director Social: CHAYA : 1945 Requested By: DOTTIE BARRY Order Number: [id number] Reading MD: Prashanth Venegas Measurements Intervals [place] Rate: 70 P: 62 [place]: 136 QRS: -37 QRSD: 88 T: 38 QT: 370 QTc: 402 Interpretive Statements SINUS RHYTHM ABNORMAL LEFT AXIS DEVIATION LEFT ANTERIOR FASCICULAR BLOCK ABNORMAL ECG Electronically Signed On 02-05-2021 7:56:30 STAGE TECHNICIAN by Prashanth Venegas
== END 2021-02-04 16:25 | disposition home or self-care (01) ==
LOC: ER 11:31
DX: K59.01 Slow transit constipation (principal); M06.9 Rheumatoid arthritis, unspecified; J44.9 Chronic obstructive pulmonary disease, unspecified; F17.200 Nicotine dependence, unspecified, uncomplicated; G35 Multiple sclerosis
CPT/HCPCS: 36415; 71045; 74018; 80053; 81001; 84484; 85025; 87086; 87804; 93005; 96360; 96361; 99285; C9803; J7030; U0003